=== PATIENT | male | born 1985 | race Caucasian/White ===

== ENCOUNTER 2024-05-15 03:00 | Observation (INO) ==
--- OUTSIDE RECORDS SUMMARY | 2024-05-15 03:05 | External Medical Summary ---
Author Name Unknown Address Unknown Organization K01:[facility] [place] [address] [place] [address] [place] [address] Laboratory Report Ordering Provider Test Date Status 04/17/2024 09:24:33 Final Observation Date Value Abnormality Reference (Units ) Status BUN 04/17/2024 09:24:33 13 6-20 (mg/dL) Final Creatinine 04/17/2024 09:24:33 0.9 0.6-1.2 (mg/dL) Final Glomerular filtration rate/1.73 sq M.predicted [Volume Rate/Area] in Serum, Plasma or Blood by Creatinine-based formula (CKD-EPI) 04/17/2024 09:24:33 >90 >=60 (mL/min) Final eGFR is calculated based on the CKD-EPI 2020 equation. Sodium 04/17/2024 09:24:33 138 135-146 (m mol/L) Final Potassium 04/17/2024 09:24:33 4.5 3.5-5.1 (m mol/L) Final Cl 04/17/2024 09:24:33 101 98-107 (mm ol/L) Final CO2 04/17/2024 09:24:33 24 22-32 (mmo l/L) Final Anion gap 04/17/2024 09:24:33 13 7-15 (mmol /L) Final Glucose 04/17/2024 09:24:33 99 70-120 (mg /dL) Final Albumin 04/17/2024 09:24:33 4.8 3.8-5.0 (g /dL) Final AST (Aspartate aminotransferase) 04/17/2024 09:24:33 29 10-50 (U/L) Final Alk Phos 04/17/2024 09:24:33 61 35-130 (U/ L) Final Bilirubin, Total 04/17/2024 09:24:33 0.9 <=1 .2 (mg/dL) Final Calcium 04/17/2024 09:24:33 9.6 8.4-10.2 ( mg/dL) Final Protein 04/17/2024 09:24:33 7.2 6.0-8.3 (g /dL) Final ALT (Alanine aminotransferase) 04/17/2024 09:24:33 33 10-50 (U/L) Final Performing Location [facility] [place] [facility] [address] [facility] [address]
--- OUTSIDE RECORDS SUMMARY | 2024-05-15 03:05 | External Medical Summary | Summary of Care ---
Author Name Unknown Organization [facility] Address [address] [facility] [place] [address] Phone [phone] Care Team Providers Care Preschool Assistant Teacher Name Role Phone Joyce Amezcua PA-C Primary Care Provider [phone] [phone] Reason for Visit * Reason Comments Follow Up Patient is here for his yearly check up.Patient has no concerns today. Encounter Details Date Type Department Care Team (Late st Contact Info) Description 03/23/2024 1:20 PM EST Office [facility] [address] [place] [address] August, Pietro Nation MD [address] [facility] [place], [place] [id number] Encounter for routine preventive care for patient older than 28 days*; Gouty arthropathy; Severe obesity with body mass index (BMI) of 35.0 to 39.9 with serious comorbidity (HCC); Screening for lipid disorders; Screening for diabetes mellitus; Elevated blood pressure, situational Allergies No known active allergiesdocumented as of this encounter (statuses as of 03/23/2024) Medications Ascorbic Acid (VITAMIN C ER) 1000 MG TBCR Take 1 Tab by mouth once. 30 Tab 5 7 Active Indomethacin 50 MG Oral CapsuleIndicatio ns:Gouty arthropathy TAKE ONE CAPSULE BY MOUTH THREE TIMES DAILY WITH MEALS as needed for pain and gout flares 30 Capsule 1 4 Active Allopurinol 300 MG Oral Tablet (Zyloprim)Indica tions:Gouty arthropathy,Ericka re obesity with body mass index (BMI) of 35.0 to 39.9 with serious comorbidity (HCC) TAKE 1 TABLET BY MOUTH IN THE MORNING 90 Tablet 3 4 Active FLAX OIL-FISH OIL-BORAGE OIL PO CAPS None Entered 03/23/20 24 Discontinu ed(Patient preference /discontin uation) Allopurinol 300 MG Oral Tablet (Zyloprim)Indica tions:Gouty arthropathy,Ericka re obesity with body mass index (BMI) of 35.0 to 39.9 with serious comorbidity (HCC) TAKE 1 TABLET BY MOUTH IN THE MORNING 90 Tablet 3 3 03/23/20 24 Discontinu ed(Refill) Indomethacin 50 MG Oral Capsule TAKE ONE CAPSULE BY MOUTH THREE TIMES DAILY WITH MEALS as needed for pain and gout flares 30 Capsule 1 3 03/23/20 24 Discontinu ed(Refill) Cetirizine HCl 10 MG Oral Tablet (ZyrTEC) Take 1 Tablet by mouth in the morning. 90 Tablet 3 3 03/23/20 24 Discontinu ed(Patient preference /discontin uation) documented as of this encounter (statuses as of 03/23/2024) Active Problems Problem Noted Date Diagnosed Date Allergic rhinitis 03/28/2023 Obesity, morbid (more than 1 00 lbs over ideal weight or BMI > 40) 07/12/2017 Overview (02/12/2018): ICD-10 update of inactive diagnosis Gouty arthropathy 07/11/2017 Elevated blood pressure, situational 07/11/2017 General medical exam 09/07/2014 Knee pain, right 11/23/2013 documented as of this encounter (statuses as of 03/23/2024) Resolved Problems Problem Noted Date Diagnosed Date Resolved Date Gout 07/17/2015 07/17/2015 Gout 11/23/2013 07/11/2017 documented as of this encounter (statuses as of 03/23/2024) Immunizations Name Administration Dates Next Due TDAP (age 10 and older)(Boostrix) 03/07/2023, documented as of this encounter Social History Tobacco Use Types Packs/Day Years Used Date Smoking Tobacco: Never Smokeless Tobacco: Never Alcohol Use Standard Drinks/Week Comments Yes 0 (1 standard drink = 0.6 oz pur e alcohol) rare PHQ-2 Answer Date Recorded PHQ-2 Score 0 01/14/2020 Hunger Vital Sign Answer Date Recorded Worried About Running Out of Food in the Last Ye ar Never true 03/03/2021 Ran Out of Food in the Last Year Never true 03/03/2021 Utilities Answer Date Recorded Do you have trouble paying y our heating, water, or electric bill? (Adult - for ages 18 years and over) Not on file 10/15/2023 Is your family able to pay t he heat, water, or electric bill? (Household - for ages 0-17 years) Not on file 10/15/2023 Does your family have access to good internet? (Household - for ages 0-17 years) Not on file 10/15/2023 Social Connections Answer Date Recorded How often do you feel lonely or isolated from those around you? (Adult - for ages 18 years and over) Not on file 10/15/2023 Sex and Gender Information Value Date Recorded Sex Assigned at Not on file Legal Sex Male 5:53 AM EST Gender Identity Not on file Sexual Orientation Not on file Occupation Industry Job Start Date Job End Date construction Not on file Not on file Not on file documented as of this encounter Last Filed Vital Signs Vital Sign Reading Time Taken Comments Blood Pressure 139/88 03/23/2024 1:35 PM EST Pulse 74 03/23/2024 1:35 PM EST Temperature 36.8 C (98.2 F) 03/23/2024 1:35 PM ES T Respiratory Rate 18 03/23/2024 1:35 PM EST Oxygen Saturation 97% 03/23/2024 1:35 PM EST Inhaled Oxygen Concentration - - Weight 123.1 kg (271 lb 6.4 oz) 03/23/2024 1:35 PM EST Height - - Body Mass Index 41.88 03/28/2023 5:46 PM EST documented in this encounter Progress Notes * Pietro Bui MD - 03/23/2024 1:36 PM EST Images from the original note were not included. Assessment and Plan 1. Gouty arthropathy Continue allopurinol and p.r.n. indomethacin. Uric acid with lab work. Goal 6. - Indomethacin 50 MG Oral Capsule; TAKE ONE CAPSULE BY MOUTH THREE TIMES DAILY WITH MEALS as neededfor pain and gout flares Dispense: 30 Capsule; Refill: 1 - Allopurinol 300 MG Oral Tablet (Zyloprim); TAKE 1 TABLET BY MOUTH IN THE MORNING Dispense: 90 Tablet; Refill: 3 - URIC ACID; Future 2. Severe obesity with body mass index (BMI) of 35.0 to 39.9 with serious comorbidity (HCC) Recommend 30 minutes of exercise 5 days weekly and Mediterranean/dash diet to help achieve goal weight. - Allopurinol 300 MG Oral Tablet (Zyloprim); TAKE 1 TABLET BY MOUTH IN THE MORNING Dispense: 90 Tablet; Refill: 3 3. Screening for lipid disorders - LIPID PANEL WITH DIRECT LDL IF TG IS HIGH; Future 4. Screening for diabetes mellitus - COMPREHENSIVE METABOLIC PANEL; Future 5. Encounter for routine preventive care for patient older than 28 days (Primary) Patient doing well overall. Recommend 30 minutes of exercise 5 days weekly and Mediterranean/dash diet to help achieve goal weight. Declines COVID and flu vaccines in office today. Agreeable to screening lab work as above. Recommend following with dentistry and optometry routinely. He was an appointment with Optometry today. Sunscreen when exposed. Seatbelts always. 6. Elevated blood pressure, situational Blood pressure borderline at 139/88. Recommend moderate 15-20 lb weight loss. Monitor at upcoming appointments. Wrap-Up Follow up yearly. History of Present Illness The patient is a 39-year-old male with past medical history of obesity, history of elevated blood pressure without diagnosis of hypertension, gout who presents for yearly physical. 39-year-old male presents for routine yearly physical. No significant changes to his health over the last year. He currently takes allopurinol 300 mg oral daily for history of gout. He also has indomethacin that he uses p.r.n. for any flares. No recent flares. His most recent uric acid level was 6.4 in 2021. He otherwise denies chest pain or shortness of breath. No leg swelling. No new allergies,family, social, surgical history to be updated. His blood pressure is borderline at 130 9/88. This has been borderline in the past. We did discuss potential moderate weight loss of 15-20 lb which mayreduce his risk of progressing to hypertension. He was due for basic lab work as creatinine was mildly elevated at 1.3 on last lab work in 2021. Physical Exam Vitals: 03/23/24 1335 Temp: 98.2 F (36.8 C) Pulse: 74 Resp: 18 SpO2: 97% Physical Exam Physical Exam Vitals reviewed. Constitutional: General: He is not in acute distress. Appearance: He is obese. HENT: Right Ear: Tympanic membrane normal. There is no impacted cerumen. Left Ear: Tympanic membrane normal. There is no impacted cerumen. Mouth/Throat: Mouth: Mucous membranes are moist. Pharynx: No oropharyngeal exudate or posterior oropharyngeal erythema. Cardiovascular: Rate and Rhythm: Normal rate and regular rhythm. Heart sounds: No murmur heard. Pulmonary: Effort: Pulmonary effort is normal. No respiratory distress. Breath sounds: Normal breath sounds. No wheezing. Abdominal: General: There is no distension. Palpations: Abdomen is soft. Tenderness: There is no abdominal tenderness. Musculoskeletal: Cervical back: Neck supple. Lymphadenopathy: Cervical: No cervical adenopathy. Skin: General: Skin is warm and dry. Neurological: General: No focal deficit present. Mental Status: He is alert. Psychiatric: Mood and Affect: Mood normal. Behavior: Behavior normal. This note has been completed in part utilizing [employer] Speech Voice Recognition Software. Due to technical limitations of the software, grammatical errors, random word insertions, prounoun errors, and incomplete sentences may occur. Any formal questions or concerns about the content, text, or information contained within the body of this dictation should be directly addressed to the provider for clarification. documented in this encounter Nursing Notes * Regina Almaraz LPN - 03/23/2024 1:34 PM EST The patient has been properly identified by confirmation of name and date of . Chief Complaint Patient presents with Follow Up Patient is here for his yearly check up. Patient has no concerns today. documented in this encounter Plan of Treatment Upcoming Encounters Date Type Department Care Team (Late st Contact Info) Description 03/24/2025 1:20 PM EST [facility] [address] [place] [address] August, Pietro Nation MD [address] [place] [id number] Scheduled Orders Name Type Priority Associated Diagnoses Orde r Schedule LIPID PANEL WITH DIRECT LDL IF TG IS HIGH Lab Routine Screening for lipid disorders Expected: 03/23/2024, Expires: 03/23/2025 COMPREHENSIVE METABOLIC PANEL Lab Routine Screening for diabetes mellitus Expected: 03/23/2024 (Approximate), Expires: 03/23/2025 URIC ACID Lab Routine Gouty arthropathy Expected: 03/23/2024 (Approximate), Expires: 03/23/2025 Health Maintenance Due Date Last Done Comments Hepatitis C Screening 01/19/2004 Hepatitis B Vaccine (1 of 3 - 19+ 3-dose series) 2005 GFR 03/09/2023 03/09/2022, 08/2020, 01/23/2020, Additional history exists COVID-19 Vaccine ( - season) 2023 Influenza Vaccine (FLU shot) (#1) 2023 Albumin/Creatinine Ratio 03/09/2025 03/09/2022, 12/29 Diabetes Screening 03/09/2025 03/09/2022, 1 05/03/2020, 01/23/2020, Additional history exists Depression Screening 03/23/2025 03/23/2024, 01/14/20 20 DTap/Tdap Vaccines (3 - Td or Tdap) 03/07/2033 03/07/2023, 05/24/2016 HPV (Gardasil) Vaccine Aged Out No lo nger eligible based on patient's age to complete this topic MENINGOCOCCAL (MENACTRA/MENVEO) Aged Out No longer eligible based on patient's age to complete this topic Pneumococcal Vaccine: Pediatrics (0 to 5 Years) and At-Risk Patients (6 to 64 Years) Aged Out No longer eligible based on patient's age to complete this topic documented as of this encounter Medical Devices Not on filedocumented as of this encounter Visit Diagnoses Diagnosis Encounter for routine preventive care for patient older than 28 days- Primary Gouty arthropathy Gouty arthropathy, unspecified Severe obesity with body mass index (BMI) of 35.0 to 39.9 with serious comorbidity (HCC) Screening for lipid disorders Screening for diabetes mellitus Elevated blood pressure, situational Elevated blood pressure reading without diagnosis of hypertension documented in this encounter Care Teams Preschool Assistant Teacher Relationship Specialty Start Date End Date Joyce Amezcua PA-C [address] [facility] [place] [address] PCP - General Physician Valve Tester 03/03/21 documented as of this encounter
--- OUTSIDE RECORDS SUMMARY | 2024-05-15 03:05 | External Medical Summary | Summary of Care ---
Author Name Unknown Organization [facility] Address [address] [facility] [place] [address] Phone [phone] Care Team Providers Care Stone Processing Machine Operator Name Role Phone Joyce Amezcua PA-C Primary Care Provider [phone] Encounter Details Date Type Department Care Team (Late st Contact Info) Description 04/01/2024 Orders Only PATIENT PORTAL DO NOT DELETE THIS DEPT USED BY [place] [id number] Allergies No known active allergiesdocumented as of this encounter (statuses as of 04/01/2024) Medications Ascorbic Acid (VITAMIN C ER) 1000 MG TBCR Take 1 Tab by mouth once. 30 Tab 5 05/24/2016 Active Indomethacin 50 MG Oral CapsuleIndicatio ns:Gouty arthropathy TAKE ONE CAPSULE BY MOUTH THREE TIMES DAILY WITH MEALS as needed for pain and gout flares 30 Capsule 1 03/23/2024 Active Allopurinol 300 MG Oral Tablet (Zyloprim)Indica tions:Gouty arthropathy,Ericka re obesity with body mass index (BMI) of 35.0 to 39.9 with serious comorbidity (HCC) TAKE 1 TABLET BY MOUTH IN THE MORNING 90 Tablet 3 03/23/2024 Active documented as of this encounter (statuses as of 04/01/2024) Active Problems Problem Noted Date Diagnosed Date Allergic rhinitis 03/28/2023 Obesity, morbid (more than 1 00 lbs over ideal weight or BMI > 40) 07/12/2017 Overview (02/12/2018): ICD-10 update of inactive diagnosis Gouty arthropathy 07/11/2017 Elevated blood pressure, situational 07/11/2017 General medical exam 09/07/2014 Knee pain, right 11/23/2013 documented as of this encounter (statuses as of 04/01/2024) Resolved Problems Problem Noted Date Diagnosed Date Resolved Date Gout 07/17/2015 07/17/2015 Gout 11/23/2013 07/11/2017 documented as of this encounter (statuses as of 04/01/2024) Immunizations Name Administration Dates Next Due TDAP (age 10 and older)(Boostrix) 03/07/2023, documented as of this encounter Social History Tobacco Use Types Packs/Day Years Used Date Smoking Tobacco: Never Smokeless Tobacco: Never Alcohol Use Standard Drinks/Week Comments Yes 0 (1 standard drink = 0.6 oz pur e alcohol) rare PHQ-2 Answer Date Recorded PHQ Adult Total Score 0 03/23/2024 Hunger Vital Sign Answer Date Recorded Worried About Running Out of Food in the Last Ye ar Never true 03/03/2021 Ran Out of Food in the Last Year Never true 03/03/2021 Sex and Gender Information Value Date Recorded Sex Assigned at Not on file Legal Sex Male 5:53 AM EST Gender Identity Not on file Sexual Orientation Not on file Occupation Industry Job Start Date Job End Date construction Not on file Not on file Not on file documented as of this encounter Plan of Treatment Upcoming Encounters Date Type Department Care Team (Late st Contact Info) Description 03/24/2025 1:20 PM EST [facility] [address] [place] [phone] August, Pietro Nation MD [address] [place] [address] Health Maintenance Due Date Last Done Comments Hepatitis C Screening 01/19/2004 Hepatitis B Vaccine (1 of 3 - 19+ 3-dose series) 2005 GFR 03/09/2023 03/09/2022, 11/0 08/2020, 01/23/2020, Additional history exists COVID-19 Vaccine ( - 2023- season) 2023 Influenza Vaccine (FLU shot) (#1) 2023 Albumin/Creatinine Ratio 03/09/2025 03/09/2022, 12/29 Diabetes Screening 03/09/2025 03/09/2022, 1 05/03/2020, 01/23/2020, Additional history exists Depression Screening 03/23/2025 03/23/2024 DTap/Tdap Vaccines (3 - Td or Tdap) [...] Not on filedocumented as of this encounter Care Teams Stone Processing Machine Operator Relationship Specialty Start Date End Date Joyce Amezcua PA-C [address] [facility] [place] [address] PCP - General Physician Coal Carrier 03/03/21 documented as of this encounter
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
--- OUTSIDE RECORDS SUMMARY | 2024-05-15 03:05 | External Medical Summary ---
Author Name Unknown Address Unknown Organization K01:[facility] [place] [address] [place] [address] Laboratory Report Ordering Provider Test Date Status 04/17/2024 09:24:33 Final Observation Date Value Abnormality Reference (Units ) Status Uric Acid 04/17/2024 09:24:33 7.8 Above high normal 3. 4-7.0 (mg/dL) Final Performing Location [facility] [place] - [address] [place] [address]
--- OUTSIDE RECORDS SUMMARY | 2024-05-15 03:05 | External Medical Summary | Summary of Care ---
Author Name Unknown Organization [facility] Address [address] [facility] [place] [address] Phone [phone] Care Team Providers Care Weatherization Crew Leader Name Role Phone Joyce Amezcua PA-C Primary Care Provider [phone] Reason for Visit * Reason Onset Date Comments Medication Management 04/27/2024 Encounter Details Date Type Department Care Team (Late st Contact Info) Description 04/27/2024 Telephone [facility] [address] [place] [phone] Joyce Amezcua PA-C [address] [facility] [place] [address] Medication Management Allergies No known active allergiesdocumented as of this encounter (statuses as of 04/27/2024) Medications Ascorbic Acid (VITAMIN C ER) 1000 MG TBCR Take 1 Tab by mouth once. 30 Tab 5 7 Active Indomethacin 50 MG Oral CapsuleIndicatio ns:Gouty arthropathy TAKE ONE CAPSULE BY MOUTH THREE TIMES DAILY WITH MEALS as needed for pain and gout flares 30 Capsule 1 4 Active Allopurinol 200 MG Oral TabletIndication s:Gouty arthropathy,Ericka re obesity with body mass index (BMI) of 35.0 to 39.9 with serious comorbidity (HCC) Take 200 mg by mouth in the morning and 200 mg before bedtime. 180 Tablet 3 4 Active Allopurinol 300 MG Oral Tablet (Zyloprim)Indica tions:Gouty arthropathy,Ericka re obesity with body mass index (BMI) of 35.0 to 39.9 with serious comorbidity (HCC) TAKE 1 TABLET BY MOUTH IN THE MORNING 90 Tablet 3 4 04/27/20 24 Discontinu ed(Refill) documented as of this encounter (statuses as of 04/27/2024) Active Problems Problem Noted Date Diagnosed Date Allergic rhinitis 03/28/2023 Obesity, morbid (more than 1 00 lbs over ideal weight or BMI > 40) 07/12/2017 Overview (02/12/2018): ICD-10 update of inactive diagnosis Gouty arthropathy 07/11/2017 Elevated blood pressure, situational 07/11/2017 General medical exam 09/07/2014 Knee pain, right 11/23/2013 documented as of this encounter (statuses as of 04/27/2024) Resolved Problems Problem Noted Date Diagnosed Date Resolved Date Gout 07/17/2015 07/17/2015 Gout 11/23/2013 07/11/2017 documented as of this encounter (statuses as of 04/27/2024) Immunizations Name Administration Dates Next Due TDAP [...] encounter Miscellaneous Notes * Telephone Encounter - Pietro Bui MD - 04/27/2024 5:35 PM EST New rx sent to pharmacy. Pietro Bui MD * Telephone Encounter - Yesenia Lincoln LPN - 04/27/2024 4:34 PM EST Patient's mother is aware and verbalizes understanding. She is asking if a new script for the allopurinol can be called into the [facility]. * Telephone Encounter - Mildred Lovell LPN - 04/27/2024 3:31 PM EST Left message for return call. If patient calls back please relay below message from Dr. Bui * Telephone Encounter - Mildred Lovell LPN - 04/27/2024 3:29 PM EST ----- Message from Pietro Bui MD sent at 04/26/2024 3:52 PM EST ----- Elevated uric acid at 7.8. Goal less than 6. Can increase allopurinol dosing, however, this will require twice daily dosing (200 mg BID). Continue diet and exercise to keep cholesterol under control. Pietro Bui MD documented in this encounter Plan of Treatment Upcoming Encounters Date Type Department Care Team (Late st Contact Info) Description 03/24/2025 1:20 PM EST [facility] [address] [phone] Pietro Bui MD [address] [phone] Health Maintenance Due Date Last Done Comments Hepatitis C Screening 01/19/2004 Hepatitis B Vaccine (1 of 3 - 19+ 3-dose series) 2005 COVID-19 Vaccine ( - season) 2023 Influenza [...] Diagnoses Diagnosis Gouty arthropathy Gouty arthropathy, unspecified Severe obesity with body mass index (BMI) of 35.0 to 39.9 with serious comorbidity (HCC) documented in this encounter Care Teams Weatherization Crew Leader Relationship Specialty Start Date End Date Joyce Amezcua PA-C PCP - General Physician Bag Patcher 03/03/21 documented as of this encounter
--- OUTSIDE RECORDS SUMMARY | 2024-05-15 03:05 | External Medical Summary ---
Author Name Unknown Address Unknown Organization [id number]:[facility] - [address] [place] [id number] Laboratory Report Ordering Provider Test Date Status 04/17/2024 09:24:33 Final Observation Date Value Abnormality Reference (Units ) Status Triglyceride 04/17/2024 09:24:33 333 Above high normal <=174 (mg/dL) Final Triglyceride Reference Range s (mg/dL):
<150 Acceptable
150-174 Borderline high
175-499 High
>=500 Very high Cholesterol 04/17/2024 09:24:33 193 <200 (mg /dL) Final Total Cholesterol Reference Ranges (mg/dL):
<200 Desirable
200-239 Borderline high
>=240 High HDL 04/17/2024 09:24:33 27 Below low normal >39 (mg/dL) Final HDL Cholesterol Reference Ra nges (mg/dL):
>=60 High (Desirable)
<50 Low (Undesirable) For Females
<40 Low (Undesirable) For Males NON-HDL CHOLESTEROL 04/17/2024 09:24:33 166 Above high normal <=159 (mg/dL) Final Non-HDL Cholesterol Referenc e Range (mg/dL):
<100 Target level for high risk ASCVD patient
<130 Optimal for general population
130-159 Near optimal for general population
160-189 Borderline High
190-219 High
>=220 Very High LDL, (calculated) 04/17/2024 09:24:33 99 <= 129 (mg/dL) Final LDL Cholesterol Reference Ra nges (mg/dL):
<70 Target level for high risk ASCVD patient
<100 Optimal for general population
100-129 Near optimal for general population
130-159 Borderline high
160-189 High
>=190 Very high Performing Location [facility] - [address] [facility] [address]
--- OUTSIDE RECORDS SUMMARY | 2024-05-15 03:05 | External Medical Summary | Summary of Care ---
Author Name Unknown Organization [facility] Address [address] [facility] [place] [address] Phone [phone] Care Team Providers Care Matching Machine Operator Name Role Phone Joyce Amezcua PA-C Primary Care Provider [phone] Reason for Visit * Reason Comments Outpatient Testing Encounter Details Date Type Department Care Team (Late st Contact Info) Description 04/17/2024 9:10 AM EST Laboratory Laboratory, [facility] [address] [place] [address] [facility] [address] [facility] [place] [address] Screening for lipid disorders; Screening for diabetes mellitus; Gouty arthropathy Allergies No known active allergiesdocumented as of this encounter (statuses as of 04/17/2024) Medications Ascorbic Acid (VITAMIN C ER) 1000 [...] as of this encounter (statuses as of 04/17/2024) Active Problems Problem Noted Date Diagnosed Date Allergic rhinitis 03/28/2023 Obesity, morbid (more than 1 00 lbs over ideal weight or BMI > 40) 07/12/2017 Overview (02/12/2018): ICD-10 update of inactive diagnosis Gouty arthropathy 07/11/2017 Elevated blood pressure, situational 07/11/2017 General medical exam 09/07/2014 Knee pain, right 11/23/2013 documented as of this encounter (statuses as of 04/17/2024) Resolved Problems Problem Noted Date Diagnosed Date Resolved Date Gout 07/17/2015 07/17/2015 Gout 11/23/2013 07/11/2017 documented as of this encounter (statuses as of 04/17/2024) Immunizations Name Administration Dates Next Due TDAP [...] Description 03/24/2025 1:20 PM EST Office Visit [facility] [place] [address] [phone] AugustPietro MD [address] [place] [id number] Pending Results Name Type Priority Associated Diagnoses Date /Time LIPID PANEL WITH DIRECT LDL IF TG IS HIGH Lab Routine Screening for lipid disorders 04/17/2024 9:24 AM EST COMPREHENSIVE METABOLIC PANEL Lab Routine Screening for diabetes mellitus 04/17/2024 9:24 AM EST URIC ACID Lab Routine Gouty arthropathy 04/17/2024 9:24 AM EST Health Maintenance Due Date Last Done Comments [...] as of this encounter Visit Diagnoses Diagnosis Screening for lipid disorders Screening for diabetes mellitus Gouty arthropathy Gouty arthropathy, unspecified documented in this encounter Care Teams Matching Machine Operator Relationship Specialty Start Date End Date Joyce Amezcua PA-C PCP - General Physician Fuel Cell Assembler 03/03/21 documented as of this encounter
--- NOTE | 2024-05-15 03:16 | Emergency Department Note ---
History of Present Illness General Chief complaint: Abdominal Pain Stated complaint: ABDOMINAL PAIN Time Seen by Provider: 05/15/24 03:03 History of Present Illness This 39-year-old male presents ER complaint of nausea, vomiting, diarrhea and mid abdominal pain for the past several hours. Patient denies chest pain, dyspnea, fevers, well water, recent antibiotics. His appendix has surgically been removed. Home Medications Medication Instructions Recorded Confirmed Type OMEGA-3 FATTY ACIDS (FISH OIL) 2 capsules PO DAILY ##0 08/01/12 History ALLOPURINOL (ZYLOPRIM) 200 mg PO QD #0 tabs 10/29/17 History Ascorbic Acid (Vitamin C) 500 mg PO QD ##0 10/29/17 History Allergies Allergy/AdvReac Type Severity Reaction Status Date / Time No Known Allergies Allergy Unverified 10/29/17 11:12 Past Med/Surg History Problem List (Updated 05/15/24 @ 04:43 by Debbie Leblanc PA-C) Acute pancreatitis (Acute) Nausea, vomiting, and diarrhea (Acute) Social History Smoking Status: Never smoker Preferred Language: Wolof Feels Safe at Home: Yes Review of Systems A total of 10 systems reviewed and were otherwise negative Physical Exam Vital Signs Vital Signs - 24 hr 05/15/24 03:02 05/15/24 03:50 05/15/24 03:50 Pulse Rate 69 84 Pulse Rate [Apical] 85 Pulse Rhythm Regular Pulse Rhythm [Apical] Regular Pulse Strength [Apical] Normal Respiratory Rate 18 20 20 Respiratory Effort / Characteristics Non-Labored Spontaneous Respiratory Depth Normal Respiratory Pattern Regular Blood Pressure 94/62 L Blood Pressure [Left Arm] 105/76 Blood Pressure Mean 72 Blood Pressure Mean [Left Arm] 85 Blood Pressure Position [Left Arm] Lying Pulse Oximetry 97 97 98 Oxygen Delivery Method Room Air Room Air Room Air Sepsis Recent Fever Within 48 Hours No Sepsis New/Unexplained Change in Mental Status No Sepsis Action Taken by Nursing No Action Required 05/15/24 03:58 05/15/24 04:00 Pulse Rate 85 Pulse Rate [Apical] 100 H Pulse Rhythm Pulse Rhythm [Apical] Regular Pulse Strength [Apical] Normal Respiratory Rate 20 Respiratory Effort / Characteristics Non-Labored Spontaneous Respiratory Depth Normal Respiratory Pattern Regular Blood Pressure Blood Pressure [Left Arm] 106/62 Blood Pressure Mean Blood Pressure Mean [Left Arm] 76 Blood Pressure Position [Left Arm] Lying Pulse Oximetry 99 Oxygen Delivery Method Room Air Sepsis Recent Fever Within 48 Hours Sepsis New/Unexplained Change in Mental Status Sepsis Action Taken by Nursing VITALS: Vitals are noted on the nurse's note and reviewed by myself. Vital signs stable. GENERAL: White male ambulating with mother present, in no acute distress, nondiaphoretic, well-developed well-nourished. SKIN: Capillary reflex less than 2 seconds. HEENT: Normocephalic. PERRLA. EOMI. Nares patent. Mucous membranes moist. Neck is supple without nuchal rigidity. HEART: Regular rate and rhythm LUNGS: Clear to auscultation bilaterally without wheezes, rales or rhonchi. No retractions or accessory muscle use. ABDOMEN: Positive bowel sounds x 4. Normal tympanic percussion. Soft, tender mid abdomen, without masses or organomegaly. Preston sign negative. No guarding or rebound tenderness. no CVA tenderness MUSCULOSKELETAL: No gross musculoskeletal defects. NEURO: Patient was alert and oriented to person place and time. No focal neurological deficits. Course Administered Medications Discontinued Medications Dicyclomine HCl (Dicyclomine Hcl 10 Mg/Ml 2 Ml Amp/Vial) 20 mg IM NOW ONE Stop: 05/15/24 03:15 Last Admin: 05/15/24 03:26 Dose: 20 mg Documented By: LETTY Sodium Chloride (Nss) 1,000 mls @ 999 mls/hr IV .Q1H1M ONE Stop: 05/15/24 04:14 Last Infusion: 05/15/24 04:29 Dose: Infused Documented By: Admin: 05/15/24 03:28 Dose: 999 mls/hr Documented By: LETTY Famotidine (Pepcid 20mg Iv Push) 20 mg in 5 mls @ 2.5 mls/min IV NOW STA Stop: 05/15/24 03:15 Last Admin: 05/15/24 03:26 Dose: 2.5 mls/min Documented By: LETTY Sodium Chloride (Nss) 1,000 mls @ 999 mls/hr IV .Q1H1M ONE Stop: 05/15/24 04:43 Last Admin: 05/15/24 04:31 Dose: 999 mls/hr Documented By: LETTY Ioversol (Optiray 320 100ml) 100 ml IV ONCE ONE Stop: 05/15/24 03:46 Last Admin: 05/15/24 03:46 Dose: 93 ml Documented By: TANK Ondansetron HCl (Ondansetron Inj 2 Mg/Ml 2 Ml Vial) 4 mg IV NOW STA Stop: 05/15/24 03:15 Last Admin: 05/15/24 03:26 Dose: 4 mg Documented By: LETTY Medical Decision Making Medical Records Attestation: I reviewed the patient's medical records. Home Medications Current Medication List: was personally reviewed by me Laboratory Data Attestation: I reviewed the patient's lab results. 05/15/24 03:09 05/15/24 03:09 Lab Results 05/15/24 05/15/24 05/15/24 Range/Units 03:09 03:25 03:50 WBC 11.87 H (4.8-10.8) K/ul RBC 6.10 (4.70-6.10) M/uL Hgb 18.7 H (14.0-18.0) g/dl POC Hgb 18.7 H (14.0-18.0) g/dl Hct 54.9 H (42.0-52.0) % POC Hct 55 H (42-52) % MCV 90.0 (80.0-100.0) fL MCH 30.7 (25.0-34.0) pg MCHC 34.1 (32.0-36.0) g/dL RDW Std Deviation 38.8 (36.4-46.3) fL RDW Coeff of Dyana 11.9 (11.5-14.5) % Plt Count 308 (130-400) K/uL MPV 9.8 (9.4-12.4) fL Immature Gran % (Auto) 0.6 % Neut % (Auto) 62.4 % Lymph % (Auto) 29.0 % Cataño % (Auto) 4.4 % Eos % (Auto) 2.9 % Baso % (Auto) 0.7 % Neut # (Auto) 7.42 H (1.40-6.50) K/uL Lymph # (Auto) 3.44 H (1.20-3.40) K/uL Cataño # (Auto) 0.52 (0.11-0.59) K/uL Eos # (Auto) 0.34 (0.00-0.50) K/uL Baso # (Auto) 0.08 (0.00-0.20) K/uL Immature Gran # (Auto) 0.07 (0.01-0.20) K/uL POC Sodium 140 (135-144) mmol/L Sodium 138 (136-145) mmol/L POC Potassium 3.7 (3.3-5.0) mmol/L Potassium 3.8 (3.5-5.1) mmol/L POC Chloride 100 L (101-112) mmol/L Chloride 100 (98-107) mmol/L Carbon Dioxide 30 (21-32) mmol/L POC Total CO2 27 (24-31) mmol/L Anion Gap 8 (3-11) POC Anion Gap 17.0 (16-25) mmol/L POC BUN 21 H (7-18) mg/dl BUN 20 (6-23) mg/dl Creatinine 1.50 H (0.6-1.4) mg/dl POC Creatinine 1.6 H (0.6-1.3) mg/dl Est Cr Clr Drug Dosing 83.7 ml/min eGFR 60.73 BUN/Creatinine Ratio 13.3 (10-20) Glucose 137 H (70-99(Fasting)) mg/dl POC Glucose (other) 133 H (70-99) mg/dl Calcium 10.0 (8.6-10.3) mg/dl POC Ioniz Calcium Renae 1.21 (1.12-1.32) mmol/l Magnesium 2.3 (1.7-2.4) mg/dl Total Bilirubin 0.7 (0.2-1.0) mg/dl AST 21 (13-39) U/L ALT 24 (7-52) U/L Alkaline Phosphatase 65 (34-104) U/L Total Protein 7.9 (6.0-8.3) gm/dl Albumin 5.0 (3.4-5.0) gm/dl Globulin 2.9 (2.5-4.0) gm/dl Albumin/Globulin Ratio 1.7 (0.9-2) Lipase 6631 H (11-82) U/L Urine Color Yellow Urine Appearance Cloudy A (Clear) Urine pH 5.0 (4.5-7.5) Ur Specific Hulen 1.023 (1.000-1.030) Urine Protein 2+ H (Negative) Urine Glucose (UA) Negative (Negative) Urine Ketones Trace H (Negative) Urine Blood Negative (Negative) Urine Nitrite Negative (Negative) Urine Bilirubin Negative (Negative) Urine Urobilinogen Negative (Negative) Ur Leukocyte Esterase Trace H (Negative) Urine WBC (Auto) 0-5 (0-5) /hpf Urine RBC (Auto) 3-5 H (0-2) /hpf U Hyaline Cast (Auto) 6-10 H (0-2) /lpf U Epithel Cells (Auto) 0-2 (0-2) /hpf Urine Bacteria (Auto) None Seen (None Seen) Imaging Data Attestation: I personally reviewed and interpreted this imaging study as follows: Radiologist's Impression: Abdomen/Pelvis CT 05/15/24 03:09 EXAM: CT abd pelvis IV con only CLINICAL HISTORY: mid abd pain v/d, 93 ML OPTIRAY 320 TECHNIQUE: Multiple contiguous axial images were obtained from the level of diaphragm to the pubis symphysis. This study was acquired after the IV administration of iodinated contrast material, given the patient's indications for the examination. If IV contrast material had not been administered, the likelihood of detecting abnormalities relevant to the patient's condition would have been substantially decreased. Coronal and sagittal reformatted images were generated and reviewed to improve anatomic localization and optimize lesion detection. CT scan was performed according to ALARA (as low as reasonably achievable). COMPARISON: None. FINDINGS: Minimal pericardial effusion is detected. ABDOMEN/PELVIS: Circumferential wall thickening is noted involving entire jejunum. Proximal jejunum appears dilated measuring 3.7 cm in diameter. Similar patchy wall thickening is also noted involving the ileum. However, ileal loops appear normal in caliber. Mild fat stranding and congestion is noted around is edematous small bowel loops. No signs of bowel perforation /pneumoperitoneum. Large bowel is normal in caliber. Mild free fluid is noted in the pelvis. Small fat containing bilateral inguinal hernias are noted, larger on left side. Small omental fat containing umbilical hernia is also seen. The liver is normal in size and attenuation. No focal liver lesions are seen. There is no intra or extrahepatic biliary ductal dilatation. Hepatic vasculature is patent. The gallbladder is unremarkable. The spleen is unremarkable. The pancreas is unremarkable. Both adrenal glands are unremarkable. The kidneys are normal in size and attenuation. There is no hydronephrosis. No perinephric fat stranding is seen. No renal calculi or renal masses are identified. The ureters are normal in caliber and no ureteral calculi are seen. The bladder is normal in contour. The aorta is normal in caliber. No aggressive appearing osseous lesions are identified. IMPRESSION: 1. Minimal pericardial effusion is detected. 2. Circumferential wall thickening is noted involving entire jejunum. Proximal jejunum appears dilated measuring 3.7 cm in diameter. Similar patchy wall thickening is also noted involving the ileum. However, ileal loops appear normal in caliber. Mild fat stranding and congestion is noted around is edematous small bowel loops. No signs of bowel perforation /pneumoperitoneum. Possibility of enteritis, likely infective with low grade small bowel obstruction needs consideration. Follow up is suggested. 3. Large bowel is normal in caliber. 4. Mild free fluid is noted in the pelvis. 5. Small fat containing bilateral inguinal hernias are noted, larger on left side. 6. Small omental fat containing umbilical hernia is also seen. Electronically signed by Roman Mcwilliams 05-15-2024 04:39 AM MDM Narrative Prior records/ancillary studies reviewed. Triage Nursing notes reviewed. Additional history obtained from the family. The patient's history was concerning for nausea, vomiting, diarrhea, and abdominal pain. Differential diagnosis: Etiologies such as gastroenteritis, food borne illness, infections, appendicitis, diverticulitis, inflammatory bowel disease, obstruction, GI bleed, biliary pathology, as well as others were entertained. Physical examination findings: As above. Abdominal examination revealed mid abdominal tenderness. Vital signs reviewed and revealed minimally hypotensive. ER treatment provided: IV hydration 1 L NSS. Zofran Pepcid and Bentyl were ordered On reassessment the patient felt better. Patient was tolerating p.o. intake. Diagnostics interpretation by me: The labs Independently Interpreted by myself revealed elevated lipase Mild leukocytosis Negative urine Imaging studies: CT was reviewed and read by radiology Consultation: A consultation was placed with the hospitalist. The case was discussed and diagnostics were reviewed. The patient was evaluated in the ER for further treatment. This appears to be consistent with nausea vomiting diarrhea and early pancreatitis. Lipase is quite high. CT did not show any signs of pancreatitis but patient's only had symptoms tonight and could be early. Patient was tender over the epigastric upper abdominal area and symptoms discharged tonight. She was hydrated as above. Medicine was consulted case is discussed. He will be evaluated for possible admission. By the evaluation outlined above emergent etiologies such as appendicitis, diverticulitis, obstruction, cardiac sources, mesenteric ischemia, aortic pathology, inflammatory bowel disease, renal colic, PUD, biliary pathology, UTI, as well as others were deemed relatively unlikely. The pt informed about the findings as listed above. All questions were answered and pleased with the treatment. The chart was completed utilizing [employer] Speech voice recognition software. Grammatical errors, random word insertions, pronoun errors, and incomplete sentences are an occassional consequence of this system due to software limitations, ambient noise, and hardware issues. Any formal questions or concerns about the content, text, or information contained within the body of this dictation should be directly addressed to the physician operations administrative assistant for clarification. Impression & Plan Nausea, vomiting, and diarrhea, Acute pancreatitis Discharge Plan Visit Data Chief Complaint: Abdominal Pain Stated Complaint: ABDOMINAL PAIN ED Provider: Pietro Arevalo ED Midlevel Provider: Debbie Leblanc Discharge Problem: Nausea, vomiting, and diarrhea, Acute pancreatitis Patient Disposition: Admitted As Inpatient Condition: Good Forms Stand Alone Forms: [facility] [employer] Prescriptions Prescriptions: No Action OMEGA-3 FATTY ACIDS (FISH OIL) 1 CAP capsule 2 capsules PO DAILY Qty: 0 ALLOPURINOL (ZYLOPRIM) 100 MG tablet 200 mg PO QD Qty: 0 Ascorbic Acid (Vitamin C) 500 MG tablet 500 mg PO QD Qty: 0 Referrals Referrals: PCP,NO [Physician] -
[2024-05-15] MEDS: FAMOTIDINE 20MG IV PUSH 20 MG/5 ML SYR IV STA (03:26)
[2024-05-15] MEDS: DICYCLOMINE HCL 10 MG/ML 2 ML AMP/VIAL IM ONE (03:26)
[2024-05-15] MEDS: ONDANSETRON INJ 2 MG/ML 2 ML VIAL IV STA (03:26)
[2024-05-15] MEDS: SODIUM CHLORIDE 0.9% 1,000 ML IV ONE ×2 (03:28→04:31)
[2024-05-15 03:37] LABS: iSTAT Creatinine 1.6 mg/dl (0.6-1.3); iSTAT Hemoglobin 18.7 g/dl (14.0-18.0); iSTAT Ionized Calcium 1.21 mmol/l (1.12-1.32); iSTAT Potassium 3.7 mmol/L (3.3-5.0)
[2024-05-15] MEDS: OPTIRAY 320 100ml IV ONE (03:46)
[2024-05-15 03:53] LABS: BUN Creatinine Ratio 13.3 (10-20); Creatinine Clr Calc Pharmacy 83.7 ml/min; Potassium 3.8 mmol/L (3.5-5.1)
[2024-05-15 04:17] LABS: Albumin Globulin Ratio 1.7 (0.9-2); Bilirubin,Total 0.7 mg/dl (0.2-1.0); Globulin 2.9 gm/dl (2.5-4.0); Magnesium 2.3 mg/dl (1.7-2.4); Total Protein 7.9 gm/dl (6.0-8.3)
[2024-05-15 04:18] LABS: Appearance Urine Cloudy (Clear); Bacteria Urine Automated None Seen (None Seen); Bilirubin Urine Negative (Negative); Blood Urine Negative (Negative); Color Urine Yellow; Epithelial Cell Urine Auto 0-2 /hpf (0-2); Glucose Urine UA Negative (Negative); Ketones Urine Trace (Negative); Leukocyte Esterase Urine Trace (Negative); Nitrite Urine Negative (Negative); Protein Urine 2+ (Negative); Specific Gravity Urine 1.023 (1.000-1.030); Urobilinogen Urine Negative (Negative); WBC Urine Automated 0-5 /hpf (0-5)
[2024-05-15 04:34] LABS: Basophils # (auto) 0.08 K/uL (0.00-0.20); Basophils % (auto) 0.7 %; Eosinophils # (auto) 0.34 K/uL (0.00-0.50); Eosinophils % (auto) 2.9 %; Hematocrit (blood only) 54.9 % (42.0-52.0); Hemoglobin 18.7 g/dl (14.0-18.0); Immature Granulocytes # (auto) 0.07 K/uL (0.01-0.20); Immature Granulocytes % (auto) 0.6 %; Lymphocytes # (auto) 3.44 K/uL (1.20-3.40); Mean Corpuscular Hemoglobin 30.7 pg (25.0-34.0); Mean Corpuscular Hgb Conc 34.1 g/dL (32.0-36.0); Mean Platelet Volume 9.8 fL (9.4-12.4); Monocytes # (auto) 0.52 K/uL (0.11-0.59); Monocytes % (auto) 4.4 %; Neutrophils # (auto) 7.42 K/uL (1.40-6.50); Neutrophils % (auto) 62.4 %; Platelet Count 308 K/uL (130-400); RDW Coefficient of Variation 11.9 % (11.5-14.5); RDW Standard Deviation 38.8 fL (36.4-46.3); White Blood Count 11.87 K/ul (4.8-10.8)
--- NOTE | 2024-05-15 04:39 | CT Scan Report ---
EXAM: CT abd pelvis IV con only CLINICAL HISTORY: mid abd pain v/d, 93 ML OPTIRAY 320 TECHNIQUE: Multiple contiguous axial images were obtained from the level of diaphragm to the pubis symphysis. This study was acquired after the IV administration of iodinated contrast material, given the patient's indications for the examination. If IV contrast material had not been administered, the likelihood of detecting abnormalities relevant to the patient's condition would have been substantially decreased. Coronal and sagittal reformatted images were generated and reviewed to improve anatomic localization and optimize lesion detection. CT scan was performed according to ALARA (as low as reasonably achievable). COMPARISON: None. FINDINGS: Minimal pericardial effusion is detected. ABDOMEN/PELVIS: Circumferential wall thickening is noted involving entire jejunum. Proximal jejunum appears dilated measuring 3.7 cm in diameter. Similar patchy wall thickening is also noted involving the ileum. However, ileal loops appear normal in caliber. Mild fat stranding and congestion is noted around is edematous small bowel loops. No signs of bowel perforation /pneumoperitoneum. Large bowel is normal in caliber. Mild free fluid is noted in the pelvis. Small fat containing bilateral inguinal hernias are noted, larger on left side. Small omental fat containing umbilical hernia is also seen. The liver is normal in size and attenuation. No focal liver lesions are seen. There is no intra or extrahepatic biliary ductal dilatation. Hepatic vasculature is patent. The gallbladder is unremarkable. The spleen is unremarkable. The pancreas is unremarkable. Both adrenal glands are unremarkable. The kidneys are normal in size and attenuation. There is no hydronephrosis. No perinephric fat stranding is seen. No renal calculi or renal masses are identified. The ureters are normal in caliber and no ureteral calculi are seen. The bladder is normal in contour. The aorta is normal in caliber. No aggressive appearing osseous lesions are identified. IMPRESSION: 1. Minimal pericardial effusion is detected. 2. Circumferential wall thickening is noted involving entire jejunum. Proximal jejunum appears dilated measuring 3.7 cm in diameter. Similar patchy wall thickening is also noted involving the ileum. However, ileal loops appear normal in caliber. Mild fat stranding and congestion is noted around is edematous small bowel loops. No signs of bowel perforation /pneumoperitoneum. Possibility of enteritis, likely infective with low grade small bowel obstruction needs consideration. Follow up is suggested. 3. Large bowel is normal in caliber. 4. Mild free fluid is noted in the pelvis. 5. Small fat containing bilateral inguinal hernias are noted, larger on left side. 6. Small omental fat containing umbilical hernia is also seen. Electronically signed by Roman Mcwilliams 05-15-2024 04:39 AM
[2024-05-15 04:50] LABS: Adenovirus PCR Not Detected (NotDetected); Bordetella parapertussis PCR Not Detected (NotDetected); Bordetella pertussis PCR Not Detected (NotDetected); Chlamydia pneumoniae PCR Not Detected (NotDetected); Coronavirus 229E PCR Not Detected (NotDetected); Coronavirus CoV-2 (COVID19)PCR Not Detected (NotDetected); Coronavirus HKU1 PCR Not Detected (NotDetected); Coronavirus NL63 PCR Not Detected (NotDetected); Coronavirus OC43PCR DETECTED (NotDetected); Human Metapneumovirus PCR Not Detected (NotDetected); Influenza A PCR Not Detected (NotDetected); Influenza B PCR Not Detected (NotDetected); Mycoplasma pneumoniae PCR Not Detected (NotDetected); Parainfluenza Virus 1 PCR Not Detected (NotDetected); Parainfluenza Virus 2 PCR Not Detected (NotDetected); Parainfluenza Virus 3 PCR Not Detected (NotDetected); Parainfluenza Virus 4 PCR Not Detected (NotDetected); Respiratory Syncytial VirusPCR Not Detected (NotDetected); Rhinovirus/Enterovirus PCR Not Detected (NotDetected)
[2024-05-15 06:36] LABS: Adenovirus F 40/41 PCR Not Detected (NotDetected); Astrovirus PCR Not Detected (NotDetected); Campylobacter PCR Not Detected (NotDetected); Cryptosporidium PCR Not Detected (NotDetected); Cyclospora cayetanensis PCR Not Detected (NotDetected); Entamoeba histolytica PCR Not Detected (NotDetected); Enteroaggregative E.coli(EAEC) Not Detected (NotDetected); Enteropathogenic E.coli (EPEC) Not Detected (NotDetected); Enterotoxigenic E.coli (ETEC) Not Detected (NotDetected); Giardia lamblia PCR Not Detected (NotDetected); Norovirus GI/GII PCR Not Detected (NotDetected); Plesiomonas shigelloides PCR Not Detected (NotDetected); Rotavirus A PCR Not Detected (NotDetected); Salmonella PCR Not Detected (NotDetected); Sapovirus PCR Not Detected (NotDetected); Shiga-like Toxin E.coli (STEC) Not Detected (NotDetected); Shigella/Enteroinvasive E.coli Not Detected (NotDetected); Vibrio cholerae PCR Not Detected (NotDetected); Vibrio species PCR Not Detected (NotDetected); Yersinia enterocolitica PCR Not Detected (NotDetected)
[2024-05-15] MEDS ORDERED: ONDANSETRON INJ 2 MG/ML 2 ML VIAL IV PRN (08:32)
--- NOTE | 2024-05-15 08:41 | Surgery Consultation ---
Date of Consultation May 15, 2024 Assessment & Plan (1) Acute pancreatitis: His CT images and results were personally viewed and interpreted by myself There is no dustin signs of obstruction on CT scan, only thickening of his jejunum and clinical picture fits more of an enteritis His lipase is elevated and pain is typical of pancreatitis Will order ultrasound to rule out gallstones as a cause Would consult GI to follow along in case ERCP is required N.p.o. for today give IV fluids, no need for antibiotics from a surgical standpoint Follow up US results, no plan for any surgical intervention at this time (2) Nausea, vomiting, and diarrhea: (3) Coronavirus infection: History of Present Illness Reason for Consultation: Pancreatitis, small bowel obstruction History of Present Illness This is a 39-year-old male who presents to the ER today with epigastric abdominal pain since this morning. States it is sharp and non-radiating. No aggravating or relieving factors. He had some associated nausea and vomiting. Denies any fevers or chills. NO jaundice, scleral icterus. Previous abdominal surgeries include appendectomy. He has also had diarrhea with this. States he has not had a drink of ETOH for about 3 months. Allergies Allergy/AdvReac Type Severity Reaction Status Date / Time No Known Allergies Allergy Unverified 10/29/17 11:12 Home Medications Medication Instructions Recorded Confirmed Type [place] 3 2 capsules PO UD ##0 08/01/12 05/15/24 History allopurinol 300 mg tablet 300 mg PO DAILY #0 tabs 10/29/17 05/15/24 History ascorbic acid (vitamin C) 500 mg PO UD ##0 10/29/17 05/15/24 History Sudafed 1 tab PO DIRECTED PRN Cold 05/15/24 05/15/24 History Symptoms indomethacin 50 mg capsule 50 mg PO TID PRN pain/gout flare 05/15/24 05/15/24 History Patient History Social History Smoking Status: Never smoker Preferred Language: Korean Feels Safe at Home: Yes Review of Systems Constitutional: no fever and no chills Eyes: no blind spots and no worsening vision Ear, Nose, Mouth, Throat: no ear pain and no hearing loss Respiratory: no cough and no dyspnea Cardiovascular: no chest pain and no dyspnea on exertion Gastrointestinal: + abdominal pain, + nausea, + vomiting a nd + diarrhea/loose stools; no constipation, no blood in stools and no melena Genitourinary: no dysuria or no urinary incontinence Musculoskeletal: no back pain and no neck pain Integumentary: no acne and no changing lesions Neurologic: no gait abnormality and no headache(s) Psychiatric: no behavioral changes and no depression Hematologic / Lymphatic: no easy bleeding and no easy bruising Physical Exam Constitutional: WD/WN, vitals as above Eyes: PERRL, conjunctivae normal, anicteric sclerae ENMT: external ear and nose normal, oropharynx normal Neck: trachea midline, no thyromegaly Respiratory: normal respiratory effort, lungs clear to auscultation Cardiovascular: RRR, no murmur, no edema Gastrointestinal (Abdomen): Inspection/Auscultation: abdomen normal to inspection; abdomen not distended Percussion/Palpation: + abdomen tender (Epigastrium) and abdomen soft; no guarding and no hernia Musculoskeletal: no cyanosis or clubbing, extremities motor strength 5/5 Skin: no rashes, warm and dry Neurologic: PERRL, EOMI, accommodation nl, no face palsy, no dysarthria Psychiatric: A+Ox3, euthymic affect Results & Data Vital Signs (Past 12 Hours) Vital Signs Pulse Pulse Resp BP BP Pulse Ox O2 Del Method 05/15/24 08:10 86 05/15/24 08:00 87 20 107/71 97 Room Air 05/15/24 06:56 86 18 103/71 96 Room Air 05/15/24 06:00 93 H 20 114/71 98 Room Air 05/15/24 04:00 100 H 20 106/62 99 Room Air 05/15/24 03:58 85 05/15/24 03:50 85 20 105/76 98 Room Air 05/15/24 03:50 84 20 97 Room Air 05/15/24 03:02 69 18 94/62 L 97 Room Air PG Care Time/CCT Total # of Minutes Spent Total Time Spent with Patient: Total time spent is greater than 50% in coordination of care (as documented) at patient's floor/unit and/or counseling patient: Coding Level of Care Code 03393 OFFICE CONSULT LVL 55M Diagnoses Acute pancreatitis K85.90 Nausea, vomiting, and diarrhea R11.2; R19.7 Coronavirus infection B34.2
--- NOTE | 2024-05-15 08:59 | History & Physical Report ---
Date of Service May 15, 2024 Assessment & Plan (1) Acute pancreatitis: Plan: 39-year-old male with past medical history significant for elevated blood pressure situational, allergic rhinitis, morbid obesity, gout comes because of nausea vomiting diarrhea and abdominal pain. Still having diarrhea moved bowels in the ER. Abdominal pain is better. Several episodes of nausea vomiting as per patient. Patient lives with his parents. As per mother since Jennifer patient is having cold symptoms. Having lot of cough. He is taking gwqi-lsf-bzkdzdx cold medications, Sudafed. He also has gout. He takes allopurinol. He also takes indomethacin as needed and for last 1 week he was taking the indomethacin because of gout attack in his right wrist. Currently right wrist pain is resolved. Denies any fevers. No headache. Some runny nose. Vision is okay. No earaches. Ambulating okay. Micturating okay. Hemodynamics are okay. Pancreatitis Abdominal pain Lipase 6600 CT scan okay N.p.o. IV normal saline 200 mL/h Pain control GI consult Nausea vomiting Diarrhea Possible gastroenteritis IV fluids Follow stool studies GI consult Possible small bowel obstruction Patient moving bowels Will monitor YAN Creatinine 1.5 Baseline creatinine 0.9 Avoid nephrotoxic agents IV fluids Will follow repeat labs Morbid obesity Needs counseling Gout on allopurinol DVT prophylaxis Heparin subcu Disposition Medical floor Full code History of Present Illness Chief Complaint: Nausea, vomiting and abdominal pain and diarrhea Primary Care Provider: Pietro Bui MD 39-year-old male with past medical history significant for elevated blood pressure situational, allergic rhinitis, morbid obesity, gout comes because of nausea vomiting diarrhea and abdominal pain. Still having diarrhea moved bowels in the ER. Abdominal pain is better. Several episodes of nausea vomiting as per patient. Patient lives with his parents. As per mother since Jennifer patient is having cold symptoms. Having lot of cough. He is taking cvik-irl-ijppfko cold medications, Sudafed. He also has gout. He takes allopurinol. He also takes indomethacin as needed and for last 1 week he was taking the indomethacin because of gout attack in his right wrist. Currently right wrist pain is resolved. Denies any fevers. No headache. Some runny nose. Vision is okay. No earaches. Ambulating okay. Micturating okay. Hemodynamics are okay. Past medical history. As mentioned above Past surgical history. Laparoscopic appendectomy. Social history. No smoking. Alcohol rarely. No drug use. Family history. Father has gout, hypertension. Allergies Allergy/AdvReac Type Severity Reaction Status Date / Time No Known Allergies Allergy Unverified 10/29/17 11:12 Home Medications Medication Instructions Recorded Confirmed Type OMEGA-3 FATTY ACIDS (FISH OIL) 2 capsules PO DAILY ##0 08/01/12 History ALLOPURINOL (ZYLOPRIM) 200 mg PO QD #0 tabs 10/29/17 History Ascorbic Acid (Vitamin C) 500 mg PO QD ##0 10/29/17 History Past Med/Surg History Problem List Coronavirus infection (Acute) Acute pancreatitis (Acute) Nausea, vomiting, and diarrhea (Acute) Social History Smoking Status: Never smoker Preferred Language: Upper Sorbian Feels Safe at Home: Yes Review of Systems Review of Systems: All systems reviewed & are unremarkable except as noted in HPI & below Physical Exam Physical Exam: General- Not in distress Head- atraumatic Eyes- PERRL. ENT- oropharynx clear Neck- supple, no JVD. Lungs- clear to auscultation no wheezing or crackles Heart- regular rate and rhythm; no murmur, no gallop. Abdomen- normal bowel sounds, soft, nontender, no distension. Extremities- no pretibial edema, no erythema seen Neuro- alert, oriented PERRL, no facial palsy; no dysarthria; moves extremities Results & Data Results & Data Vital Signs (Past 12 Hours) Vital Signs Pulse Pulse Resp BP BP Pulse Ox O2 Del Method 05/15/24 06:56 86 18 103/71 96 Room Air 05/15/24 06:00 93 H 20 114/71 98 Room Air 05/15/24 04:00 100 H 20 106/62 99 Room Air 05/15/24 03:58 85 05/15/24 03:50 85 20 105/76 98 Room Air 05/15/24 03:50 84 20 97 Room Air 05/15/24 03:02 69 18 94/62 L 97 Room Air Diagnostic Findings Laboratory Results WBC 11.87 K/ul (4.8-10.8) H 05/15/24 03:09 RBC 6.10 M/uL (4.70-6.10) 05/15/24 03:09 Hgb 18.7 g/dl (14.0-18.0) H 05/15/24 03:09 POC Hgb 18.7 g/dl (14.0-18.0) H 05/15/24 03:25 Hct 54.9 % (42.0-52.0) H 05/15/24 03:09 POC Hct 55 % (42-52) H 05/15/24 03:25 MCV 90.0 fL (80.0-100.0) 05/15/24 03:09 MCH 30.7 pg (25.0-34.0) 05/15/24 03:09 MCHC 34.1 g/dL (32.0-36.0) 05/15/24 03:09 RDW Std Deviation 38.8 fL (36.4-46.3) 05/15/24 03:09 RDW Coeff of Dyana 11.9 % (11.5-14.5) 05/15/24 03:09 Plt Count 308 K/uL (130-400) 05/15/24 03:09 MPV 9.8 fL (9.4-12.4) 05/15/24 03:09 Immature Gran % (Auto) 0.6 % 05/15/24 03:09 Neut % (Auto) 62.4 % 05/15/24 03:09 Lymph % (Auto) 29.0 % 05/15/24 03:09 Wright % (Auto) 4.4 % 05/15/24 03:09 Eos % (Auto) 2.9 % 05/15/24 03:09 Baso % (Auto) 0.7 % 05/15/24 03:09 Neut # (Auto) 7.42 K/uL (1.40-6.50) H 05/15/24 03:09 Lymph # (Auto) 3.44 K/uL (1.20-3.40) H 05/15/24 03:09 Wright # (Auto) 0.52 K/uL (0.11-0.59) 05/15/24 03:09 Eos # (Auto) 0.34 K/uL (0.00-0.50) 05/15/24 03:09 Baso # (Auto) 0.08 K/uL (0.00-0.20) 05/15/24 03:09 Immature Gran # (Auto) 0.07 K/uL (0.01-0.20) 05/15/24 03:09 POC Sodium 140 mmol/L (135-144) 05/15/24 03:25 Sodium 138 mmol/L (136-145) 05/15/24 03:09 POC Potassium 3.7 mmol/L (3.3-5.0) 05/15/24 03:25 Potassium 3.8 mmol/L (3.5-5.1) 05/15/24 03:09 POC Chloride 100 mmol/L (101-112) L 05/15/24 03:25 Chloride 100 mmol/L (98-107) 05/15/24 03:09 Carbon Dioxide 30 mmol/L (21-32) 05/15/24 03:09 POC Total CO2 27 mmol/L (24-31) 05/15/24 03:25 Anion Gap 8 (3-11) 05/15/24 03:09 POC Anion Gap 17.0 mmol/L (16-25) 05/15/24 03:25 POC BUN 21 mg/dl (7-18) H 05/15/24 03:25 BUN 20 mg/dl (6-23) 05/15/24 03:09 Creatinine 1.50 mg/dl (0.6-1.4) H 05/15/24 03:09 POC Creatinine 1.6 mg/dl (0.6-1.3) H 05/15/24 03:25 Est Cr Clr Drug Dosing 83.7 ml/min 05/15/24 03:09 eGFR 60.73 05/15/24 03:09 BUN/Creatinine Ratio 13.3 (10-20) 05/15/24 03:09 Glucose 137 mg/dl (70-99(Fasting)) H 05/15/24 03:09 POC Glucose (other) 133 mg/dl (70-99) H 05/15/24 03:25 Calcium 10.0 mg/dl (8.6-10.3) 05/15/24 03:09 POC Ioniz Calcium Renae 1.21 mmol/l (1.12-1.32) 05/15/24 03:25 Magnesium 2.3 mg/dl (1.7-2.4) 05/15/24 03:09 Total Bilirubin 0.7 mg/dl (0.2-1.0) 05/15/24 03:09 AST 21 U/L (13-39) 05/15/24 03:09 ALT 24 U/L (7-52) 05/15/24 03:09 Alkaline Phosphatase 65 U/L (34-104) 05/15/24 03:09 Total Protein 7.9 gm/dl (6.0-8.3) 05/15/24 03:09 Albumin 5.0 gm/dl (3.4-5.0) 05/15/24 03:09 Globulin 2.9 gm/dl (2.5-4.0) 05/15/24 03:09 Albumin/Globulin Ratio 1.7 (0.9-2) 05/15/24 03:09 Lipase 6631 U/L (11-82) H 05/15/24 03:09 Urine Color Yellow 05/15/24 03:50 Urine Appearance Cloudy (Clear) A 05/15/24 03:50 Urine pH 5.0 (4.5-7.5) 05/15/24 03:50 Ur Specific [place] 1.023 (1.000-1.030) 05/15/24 03:50 Urine Protein 2+ (Negative) H 05/15/24 03:50 Urine Glucose (UA) Negative (Negative) 05/15/24 03:50 Urine Ketones Trace (Negative) H 05/15/24 03:50 Urine Blood Negative (Negative) 05/15/24 03:50 Urine Nitrite Negative (Negative) 05/15/24 03:50 Urine Bilirubin Negative (Negative) 05/15/24 03:50 Urine Urobilinogen Negative (Negative) 05/15/24 03:50 Ur Leukocyte Esterase Trace (Negative) H 05/15/24 03:50 Urine WBC (Auto) 0-5 /hpf (0-5) 05/15/24 03:50 Urine RBC (Auto) 3-5 /hpf (0-2) H 05/15/24 03:50 U Hyaline Cast (Auto) 6-10 /lpf (0-2) H 05/15/24 03:50 U Epithel Cells (Auto) 0-2 /hpf (0-2) 05/15/24 03:50 Urine Bacteria (Auto) None Seen (None Seen) 05/15/24 03:50 Stl C. cayetanensis PCR Not Detected (NotDetected) 05/15/24 05:09 Stool Rotavirus A PCR Not Detected (NotDetected) 05/15/24 05:09 Stl Adenov F 40/41 PCR Not Detected (NotDetected) 05/15/24 05:09 Stool Astrovirus (PCR) Not Detected (NotDetected) 05/15/24 05:09 Stool Campylobacter PCR Not Detected (NotDetected) 05/15/24 05:09 Stl C. diff Tox B Gene Negative Cdiff Gene (Neg) 05/15/24 05:09 Stool Cryptosporidium PCR Not Detected (NotDetected) 05/15/24 05:09 Stl E.coli Shiga Tox PCR Not Detected (NotDetected) 05/15/24 05:09 Stl Enterotoxigenic E PCR Not Detected (NotDetected) 05/15/24 05:09 Stool EPEC (PCR) Not Detected (NotDetected) 05/15/24 05:09 Stool EAEC (PCR) Not Detected (NotDetected) 05/15/24 05:09 Stl E. histolytica PCR Not Detected (NotDetected) 05/15/24 05:09 Stool Giardia Lamblia PCR Not Detected (NotDetected) 05/15/24 05:09 Stool Salmonella PCR Not Detected (NotDetected) 05/15/24 05:09 Stool Sapovirus (PCR) Not Detected (NotDetected) 05/15/24 05:09 Stl P. shigelloides PCR Not Detected (NotDetected) 05/15/24 05:09 Stl Shigella/EIEC PCR Not Detected (NotDetected) 05/15/24 05:09 St Y.enterocolitica PCR Not Detected (NotDetected) 05/15/24 05:09 Stool Vibrio (PCR) Not Detected (NotDetected) 05/15/24 05:09 Stl Vibrio cholerae PCR Not Detected (NotDetected) 05/15/24 05:09 Stl Norovirus GI/GII PCR Not Detected (NotDetected) 05/15/24 05:09 Adenovirus (PCR) Not Detected (NotDetected) 05/15/24 03:50 B. pertussis DNA (PCR) Not Detected (NotDetected) 05/15/24 03:50 B.parapertussis DNA PCR Not Detected (NotDetected) 05/15/24 03:50 C. pneumoniae DNA (PCR) Not Detected (NotDetected) 05/15/24 03:50 Coronavirus OC43 (PCR) DETECTED (NotDetected) A 05/15/24 03:50 Coronavirus HKU1 (PCR) Not Detected (NotDetected) 05/15/24 03:50 Coronavirus 229E (PCR) Not Detected (NotDetected) 05/15/24 03:50 SARS-CoV-2 (PCR) Not Detected (NotDetected) 05/15/24 03:50 Coronavirus NL63 (PCR) Not Detected (NotDetected) 05/15/24 03:50 Human Metapneumovir PCR Not Detected (NotDetected) 05/15/24 03:50 Influenza Type A (PCR) Not Detected (NotDetected) 05/15/24 03:50 Influenza Type B (PCR) Not Detected (NotDetected) 05/15/24 03:50 M. pneumoniae (PCR) Not Detected (NotDetected) 05/15/24 03:50 Parainfluenza 1 (PCR) Not Detected (NotDetected) 05/15/24 03:50 Parainfluenza 2 (PCR) Not Detected (NotDetected) 05/15/24 03:50 Parainfluenza 3 (PCR) Not Detected (NotDetected) 05/15/24 03:50 Parainfluenza 4 (PCR) Not Detected (NotDetected) 05/15/24 03:50 RSV (PCR) Not Detected (NotDetected) 05/15/24 03:50 Entero/Rhino (PCR) Not Detected (NotDetected) 05/15/24 03:50 Impressions Abdomen/Pelvis CT 05/15/24 03:09 EXAM: CT abd pelvis IV con only CLINICAL HISTORY: mid abd pain v/d, 93 ML OPTIRAY 320 TECHNIQUE: Multiple contiguous axial images were obtained from the level of diaphragm to the pubis symphysis. This study was acquired after the IV administration of iodinated contrast material, given the patient's indications for the examination. If IV contrast material had not been administered, the likelihood of detecting abnormalities relevant to the patient's condition would have been substantially decreased. Coronal and sagittal reformatted images were generated and reviewed to improve anatomic localization and optimize lesion detection. CT scan was performed according to ALARA (as low as reasonably achievable). COMPARISON: None. FINDINGS: Minimal pericardial effusion is detected. ABDOMEN/PELVIS: Circumferential wall thickening is noted involving entire jejunum. Proximal jejunum appears dilated measuring 3.7 cm in diameter. Similar patchy wall thickening is also noted involving the ileum. However, ileal loops appear normal in caliber. Mild fat stranding and congestion is noted around is edematous small bowel loops. No signs of bowel perforation /pneumoperitoneum. Large bowel is normal in caliber. Mild free fluid is noted in the pelvis. Small fat containing bilateral inguinal hernias are noted, larger on left side. Small omental fat containing umbilical hernia is also seen. The liver is normal in size and attenuation. No focal liver lesions are seen. There is no intra or extrahepatic biliary ductal dilatation. Hepatic vasculature is patent. The gallbladder is unremarkable. The spleen is unremarkable. The pancreas is unremarkable. Both adrenal glands are unremarkable. The kidneys are normal in size and attenuation. There is no hydronephrosis. No perinephric fat stranding is seen. No renal calculi or renal masses are identified. The ureters are normal in caliber and no ureteral calculi are seen. The bladder is normal in contour. The aorta is normal in caliber. No aggressive appearing osseous lesions are identified. IMPRESSION: 1. Minimal pericardial effusion is detected. 2. Circumferential wall thickening is noted involving entire jejunum. Proximal jejunum appears dilated measuring 3.7 cm in diameter. Similar patchy wall thickening is also noted involving the ileum. However, ileal loops appear normal in caliber. Mild fat stranding and congestion is noted around is edematous small bowel loops. No signs of bowel perforation /pneumoperitoneum. Possibility of enteritis, likely infective with low grade small bowel obstruction needs consideration. Follow up is suggested. 3. Large bowel is normal in caliber. 4. Mild free fluid is noted in the pelvis. 5. Small fat containing bilateral inguinal hernias are noted, larger on left side. 6. Small omental fat containing umbilical hernia is also seen. Electronically signed by Roman Mcwilliams 05-15-2024 04:39 AM Code Status & VTE Plan VTE Prophylaxis Plan VTE Prophylaxis will be ordered: Yes
[2024-05-15] MEDS: D5W AND LACTATED RINGERS 1,000 ML IV SCH (09:07)
[2024-05-15] MEDS: PIPERACILLIN/TAZOBACTAM 4.5 GM/100 ML BAG IV STA (09:33)
--- NOTE | 2024-05-15 10:09 | Ultrasound Report ---
ABDOMINAL ULTRASOUND, RIGHT UPPER QUADRANT HISTORY: Acute right upper quadrant abdominal pain Pancreatitis, r/o gallstones. COMPARISON: CT of same day FINDINGS: Pancreas: The pancreas demonstrates a normal echotexture. Liver: Increased echogenicity of the liver. No hepatic mass or marginal nodularity. No ascites. Gallbladder: No gallbladder wall thickening. No gallstones. CBD: 5 mm. Right kidney: No hydronephrosis. IMPRESSION: 1. Unremarkable gallbladder. 2. No biliary ductal dilation. 3. Hepatic steatosis. ACT 112: Negative or not required by law. Electronically signed by: Reymundo Yu M.D. 05/15/2024 10:07 AM
[2024-05-15] MEDS ORDERED: HYDROmorphone INJ 0.5 MG/0.5 ML SYR IV PRN ×2 (10:20)
[2024-05-15] MEDS: SODIUM CHLORIDE 0.9% 1,000 ML IV SCH (10:34)
[2024-05-15] MEDS: PANTOprazole 40 MG/10 ML SYR IV SCH (10:35)
[2024-05-15] MEDS: HEPARIN SOD 5,000 UNIT/0.5 ML VIAL SQ SCH (10:35)
--- NOTE | 2024-05-15 12:53 | Gastrointestinal Consultation ---
Date of Consultation May 15, 2024 Assessment & Plan (1) Nausea, vomiting, and diarrhea: (2) Abdominal pain: Plan Patient had sudden onset of symptoms this morning and these currently seem to be improved. lipase significantly elevated but CT shown normal pancreas. Covid Pos itive. GI asked to see for possible ERCP but LFTs are normal and there is no ductal dilation on CBD and as such, no ERCP needed at this time. I had reached out to radiology to review CT to comment on mesenteric veins, but have yet to hear back on this. Will discuss further with Dr. Mccray, further recommendations to follow. Supervising Physician Co-Signing Physician Notes Patient examined in the emergency room. He appeared relatively comfortable. Family at the bedside. States he is about 50% improved since admission. Abdomen protuberant with adiposity though relatively benign. Bowel sounds present. CTs suggest enteritis. This could be viral, patient is COVID- positive.. Angioedema has been associated with COVID is on the differential. Patient does not take lisinopril but he does take indomethacin which is implicated in angioedema. Lipase is 6000 somewhat atypical for angioedema. However pancreas does not appear to be inflamed on CT. I did review his CT with the radiologist exclude mesenteric vein thrombosis which could present this way but the mesenteric vessels appear fine. At this point recommend continue observing clinical course. I do not believe this is gallstone pancreatitis. Liver enzymes have not changed. Ducts are not dilated. No definite gallstones. Repeat CBC CMP and lipase tomorrow. We will check triglycerides also as a cause for possible pancreatitis. I do not believe alcohol sufficient by history to cause pancreatitis. History of Present Illness Reason for Consultation: concern for ERCP Requesting Physician: Magdy Fuentes MD Attending Physician: Donte Douglas MD History of Present Illness Patient is a 39 year old male with past medical history significant for elevated blood pressure, allergic rhinitis, morbid obesity, gout presented to the ED this morning because of nausea, vomiting, and abdominal pain that started suddenly when he woke up in the middle of the night to urinate. He tells me that pain come on all of a sudden. rated 5/10. felt like an ache. He had one loose stool but not melena or brbpr. Given this, he decided to proceed to the ED. On evaluation his lipase came back as 6631, but CT did not show signs of pancreatitis, but circumferential wall thickening is noted involving entire jejunum- ?enteritis. lactate elevated 2.4. Stools negative. covid positive. LFTs were wnl, but GI asked to see in case needed ERCP. US shown no cbd dilation. no etoh use. never had pancreatitis before. he tells me that currently he is feeling somewhat improved. Allergies Allergy/AdvReac Type Severity Reaction Status Date / Time No Known Allergies Allergy Unverified 10/29/17 11:12 Home Medications Medication Instructions Recorded Confirmed Type [place] 3 2 capsules PO UD ##0 08/01/12 05/15/24 History allopurinol 300 mg tablet 300 mg PO DAILY #0 tabs 10/29/17 05/15/24 History ascorbic acid (vitamin C) 500 mg PO UD ##0 10/29/17 05/15/24 History Sudafed 1 tab PO DIRECTED PRN Cold 05/15/24 05/15/24 History Symptoms indomethacin 50 mg capsule 50 mg PO TID PRN pain/gout flare 05/15/24 05/15/24 History Patient History Social History Smoking Status: Never smoker Preferred Language: Khmer Feels Safe at Home: Yes Review of Systems Review of Systems: All systems reviewed & are unremarkable except as noted in HPI & below Physical Exam Constitutional: WD/WN, vitals as above Respiratory: normal respiratory effort, lungs clear to auscultation Cardiovascular: Rate/Rhythm: regular rate and regular rhythm Gastrointestinal (Abdomen): normal bowel sounds, soft, nontender, no hepatosplenomegaly Psychiatric: Orientation: alert and oriented x 3 Results & Data Vital Signs (Past 12 Hours) Vital Signs Pulse Pulse Resp BP BP Pulse Ox O2 Del Method 05/15/24 11:05 89 18 117/80 95 Room Air 05/15/24 10:00 89 18 133/76 97 Room Air 05/15/24 08:10 86 05/15/24 08:00 87 20 107/71 97 Room Air 05/15/24 06:56 86 18 103/71 96 Room Air 05/15/24 06:00 93 H 20 114/71 98 Room Air 05/15/24 04:00 100 H 20 106/62 99 Room Air 05/15/24 03:58 85 05/15/24 03:50 85 20 105/76 98 Room Air 05/15/24 03:50 84 20 97 Room Air 05/15/24 03:02 69 18 94/62 L 97 Room Air Coding Level of Care Code 80963 OFFICE CONSULT LVL Diagnoses Nausea, vomiting, and diarrhea R11.2; R19.7 Abdominal pain R10.9
[2024-05-15] MEDS: PIPERACILLIN/TAZOBACTAM 4.5 GM/100 ML BAG IV SCH (13:32)
--- NOTE | 2024-05-15 17:11 | Hospitalist Progress Note ---
Date of Service May 15, 2024 Assessment & Plan (1) Sepsis: Plan: -as noted by tachycardia, tachypnea, leukocytosis with abdominal source -enteritis noted as well as pancreatitis, 2 possible sources -benign abdominal exam, elevated procalcitonin suggests bacterial etiology -elevated lactic acid as well Plan: -f/u blood cultures, ordered -start zosyn for empiric coverage -monitor exam and bowel movements -trend lactic acid -give additional NS for goal orriented resuscitation, maintenance fluids after -GI and general surgery consultations, appreciate recs (2) Acute pancreatitis: Plan: -as noticed by elevated lipase of over 6000 -no clear source on imaging Plan: -surgical consult, GI consult, appreciate recs -clear liquids for now, advance diet as toleratedf (3) Coronavirus infection: Plan: -likely source of patients cold like symptoms past week or so Plan: -supportive care (4) Nausea, vomiting, and diarrhea: Plan: -see above Plan: -zofran for nausea/vomiting (5) Enteritis: Plan: -noted on CT imaging, seems to be related to stool burden -likely source of sepsis Plan: -continue zosyn -monitor BM -follow up culture results (6) Ileus: Plan: -has not had BM in days -very dehydrated likely from cold like illness -c/b enteritis Plan: -surgery consult, appreciate recs (7) YAN (acute kidney injury): Plan: -in setting of enteritis, pancreatitis, ileus -cold like symptoms as well -likely prerenal dehydration Plan: -fluid resuscitation as tolerated Plan Feeding/fluids: clear liquids Analgesia: dilaudid Sedation: none Thromboprophylaxis: heparin Head up position: na Ulcer prophylaxis: na Glycemic control: na Spontaneous breathing trial: na Bowel care: partial ileus Indwelling catheter removal: na Deescalation of antibiotics: zosyn Admission and Anticipated Discharge Date Admission Date: May 15, 2024 Subjective [id number] male presenting with nausea and vomiting. Had been feeling sick for the past few days, then noticed the nausea and vomiting. Denied abdominal pain. In the ED noticed to have an elevated lipase and enteritis on CT scan admit, admitted to medicine for further workup. Patient seen and examined at bedside mom present and case was discussed with both with permission of the patient. Patient is doing okay today nausea and vo miting is slightly improved. Denies any abdominal pain. Has not had a bowel movement in 2 days. But is passing gas. Diarrhea before that Review of Systems Review of Systems: CONSTITUTIONAL: fatigue EYES: Patient denies any visual symptoms. EARS, NOSE, AND THROAT: No difficulties with hearing. No symptoms of rhinitis or sore throat. CARDIOVASCULAR: Patient denies chest pains, palpitations, orthopnea and paroxysmal nocturnal dyspnea. RESPIRATORY: No dyspnea on exertion, no wheezing or cough. GI: no BM in 2 days, nausea/vomiting : No urinary hesitancy or dribbling. No nocturia or urinary frequency. No abnormal urethral discharge. MUSCULOSKELETAL: No myalgias or arthralgias. NEUROLOGIC: No chronic headaches, no seizures. Patient denies numbness, tingling or weakness. PSYCHIATRIC: Patient denies problems with mood disturbance. No problems with anxiety. ENDOCRINE: No excessive urination or excessive thirst. DERMATOLOGIC: Patient denies any rashes or skin changes. Physical Exam Physical Exam: Gen: A&O 3 NAD HEENT: NCAT, EOMI, not icteric. External ears normal. No rhinorrhea. Moist mucous membranes. Neck: Supple, full range of motion, no observable masses, No meningeal sign. Lungs: No Respiratory distress. CV: RRR, no edema. Abdomen: Soft, nondistended, No rebound tenderness. MSK: No joint swelling, no redness. Skin: No rashes, petechiae, lesions. Normal color per patient. Neuro: Normal Gait, Grossly intact. Psych: Appropriate for situation. Results & Data Results & Data Vital Signs (Past 12 Hours) Vital Signs Temp Pulse Pulse Resp BP Pulse Ox O2 Del Method 05/15/24 17:00 95 H 25 H 157/97 H 100 Room Air 05/15/24 15:23 36.7 C 90 20 151/90 H 98 Room Air 05/15/24 14:01 88 16 143/95 H 97 Room Air 05/15/24 11:05 89 18 117/80 95 Room Air 05/15/24 10:00 89 18 133/76 97 Room Air 05/15/24 08:10 86 05/15/24 08:00 87 20 107/71 97 Room Air 05/15/24 06:56 86 18 103/71 96 Room Air 05/15/24 06:00 93 H 20 114/71 98 Room Air Laboratory Results Laboratory Results WBC 11.87 K/ul (4.8-10.8) H 05/15/24 03:09 RBC 6.10 M/uL (4.70-6.10) 05/15/24 03:09 Hgb 18.7 g/dl (14.0-18.0) H 05/15/24 03:09 POC Hgb 18.7 g/dl (14.0-18.0) H 05/15/24 03:25 Hct 54.9 % (42.0-52.0) H 05/15/24 03:09 POC Hct 55 % (42-52) H 05/15/24 03:25 MCV 90.0 fL (80.0-100.0) 05/15/24 03:09 MCH 30.7 pg (25.0-34.0) 05/15/24 03:09 MCHC 34.1 g/dL (32.0-36.0) 05/15/24 03:09 RDW Std Deviation 38.8 fL (36.4-46.3) 05/15/24 03:09 RDW Coeff of [place] 11.9 % (11.5-14.5) 05/15/24 03:09 Plt Count 308 K/uL (130-400) 05/15/24 03:09 MPV 9.8 fL (9.4-12.4) 05/15/24 03:09 Immature Gran % (Auto) 0.6 % 05/15/24 03:09 Neut % (Auto) 62.4 % 05/15/24 03:09 Lymph % (Auto) 29.0 % 05/15/24 03:09 [place] % (Auto) 4.4 % 05/15/24 03:09 Eos % (Auto) 2.9 % 05/15/24 03:09 Baso % (Auto) 0.7 % 05/15/24 03:09 Neut # (Auto) 7.42 K/uL (1.40-6.50) H 05/15/24 03:09 Lymph # (Auto) 3.44 K/uL (1.20-3.40) H 05/15/24 03:09 Mitchell # (Auto) 0.52 K/uL (0.11-0.59) 05/15/24 03:09 Eos # (Auto) 0.34 K/uL (0.00-0.50) 05/15/24 03:09 Baso # (Auto) 0.08 K/uL (0.00-0.20) 05/15/24 03:09 Immature Gran # (Auto) 0.07 K/uL (0.01-0.20) 05/15/24 03:09 POC Sodium 140 mmol/L (135-144) 05/15/24 03:25 Sodium 138 mmol/L (136-145) 05/15/24 03:09 POC Potassium 3.7 mmol/L (3.3-5.0) 05/15/24 03:25 Potassium 3.8 mmol/L (3.5-5.1) 05/15/24 03:09 POC Chloride 100 mmol/L (101-112) L 05/15/24 03:25 Chloride 100 mmol/L (98-107) 05/15/24 03:09 Carbon Dioxide 30 mmol/L (21-32) 05/15/24 03:09 POC Total CO2 27 mmol/L (24-31) 05/15/24 03:25 Anion Gap 8 (3-11) 05/15/24 03:09 POC Anion Gap 17.0 mmol/L (16-25) 05/15/24 03:25 POC BUN 21 mg/dl (7-18) H 05/15/24 03:25 BUN 20 mg/dl (6-23) 05/15/24 03:09 Creatinine 1.50 mg/dl (0.6-1.4) H 05/15/24 03:09 POC Creatinine 1.6 mg/dl (0.6-1.3) H 05/15/24 03:25 Est Cr Clr Drug Dosing 83.7 ml/min 05/15/24 03:09 eGFR 60.73 05/15/24 03:09 BUN/Creatinine Ratio 13.3 (10-20) 05/15/24 03:09 Glucose 137 mg/dl (70-99(Fasting)) H 05/15/24 03:09 POC Glucose (other) 133 mg/dl (70-99) H 05/15/24 03:25 Lactate 2.4 mmol/L (0.4-2.0) H* 05/15/24 11:19 Calcium 10.0 mg/dl (8.6-10.3) 05/15/24 03:09 POC Ioniz Calcium Renae 1.21 mmol/l (1.12-1.32) 05/15/24 03:25 Magnesium 2.3 mg/dl (1.7-2.4) 05/15/24 03:09 Total Bilirubin 0.7 mg/dl (0.2-1.0) 05/15/24 03:09 AST 21 U/L (13-39) 05/15/24 03:09 ALT 24 U/L (7-52) 05/15/24 03:09 Alkaline Phosphatase 65 U/L (34-104) 05/15/24 03:09 Total Protein 7.9 gm/dl (6.0-8.3) 05/15/24 03:09 Albumin 5.0 gm/dl (3.4-5.0) 05/15/24 03:09 Globulin 2.9 gm/dl (2.5-4.0) 05/15/24 03:09 Albumin/Globulin Ratio 1.7 (0.9-2) 05/15/24 03:09 Lipase 6631 U/L (11-82) H 05/15/24 03:09 Procalcitonin 0.62 ng/ml (0-0.5) H 05/15/24 09:05 Urine Color Yellow 05/15/24 03:50 Urine Appearance Cloudy (Clear) A 05/15/24 03:50 Urine pH 5.0 (4.5-7.5) 05/15/24 03:50 Ur Specific [place] 1.023 (1.000-1.030) 05/15/24 03:50 Urine Protein 2+ (Negative) H 05/15/24 03:50 Urine Glucose (UA) Negative (Negative) 05/15/24 03:50 Urine Ketones Trace (Negative) H 05/15/24 03:50 Urine Blood Negative (Negative) 05/15/24 03:50 Urine Nitrite Negative (Negative) 05/15/24 03:50 Urine Bilirubin Negative (Negative) 05/15/24 03:50 Urine Urobilinogen Negative (Negative) 05/15/24 03:50 Ur Leukocyte Esterase Trace (Negative) H 05/15/24 03:50 Urine WBC (Auto) 0-5 /hpf (0-5) 05/15/24 03:50 Urine RBC (Auto) 3-5 /hpf (0-2) H 05/15/24 03:50 U Hyaline Cast (Auto) 6-10 /lpf (0-2) H 05/15/24 03:50 U Epithel Cells (Auto) 0-2 /hpf (0-2) 05/15/24 03:50 Urine Bacteria (Auto) None Seen (None Seen) 05/15/24 03:50 Stl C. cayetanensis PCR Not Detected (NotDetected) 05/15/24 05:09 Stool Rotavirus A PCR Not Detected (NotDetected) 05/15/24 05:09 Stl Adenov F 40/41 PCR Not Detected (NotDetected) 05/15/24 05:09 Stool Astrovirus (PCR) Not Detected (NotDetected) 05/15/24 05:09 Stool Campylobacter PCR Not Detected (NotDetected) 05/15/24 05:09 Stl C. diff Tox B Gene Negative Cdiff Gene (Neg) 05/15/24 05:09 Stool Cryptosporidium PCR Not Detected (NotDetected) 05/15/24 05:09 Stl E.coli Shiga Tox PCR Not Detected (NotDetected) 05/15/24 05:09 Stl Enterotoxigenic E PCR Not Detected (NotDetected) 05/15/24 05:09 Stool EPEC (PCR) Not Detected (NotDetected) 05/15/24 05:09 Stool EAEC (PCR) Not Detected (NotDetected) 05/15/24 05:09 Stl E. histolytica PCR Not Detected (NotDetected) 05/15/24 05:09 Stool Giardia Lamblia PCR Not Detected (NotDetected) 05/15/24 05:09 Stool Salmonella PCR Not Detected (NotDetected) 05/15/24 05:09 Stool Sapovirus (PCR) Not Detected (NotDetected) 05/15/24 05:09 Stl P. shigelloides PCR Not Detected (NotDetected) 05/15/24 05:09 Stl Shigella/EIEC PCR Not Detected (NotDetected) 05/15/24 05:09 St Y.enterocolitica PCR Not Detected (NotDetected) 05/15/24 05:09 Stool Vibrio (PCR) Not Detected (NotDetected) 05/15/24 05:09 Stl Vibrio cholerae PCR Not Detected (NotDetected) 05/15/24 05:09 Stl Norovirus GI/GII PCR Not Detected (NotDetected) 05/15/24 05:09 Adenovirus (PCR) Not Detected (NotDetected) 05/15/24 03:50 B. pertussis DNA (PCR) Not Detected (NotDetected) 05/15/24 03:50 B.parapertussis DNA PCR Not Detected (NotDetected) 05/15/24 03:50 C. pneumoniae DNA (PCR) Not Detected (NotDetected) 05/15/24 03:50 Coronavirus OC43 (PCR) DETECTED (NotDetected) A 05/15/24 03:50 Coronavirus HKU1 (PCR) Not Detected (NotDetected) 05/15/24 03:50 Coronavirus 229E (PCR) Not Detected (NotDetected) 05/15/24 03:50 SARS-CoV-2 (PCR) Not Detected (NotDetected) 05/15/24 03:50 Coronavirus NL63 (PCR) Not Detected (NotDetected) 05/15/24 03:50 Human Metapneumovir PCR Not Detected (NotDetected) 05/15/24 03:50 Influenza Type A (PCR) Not Detected (NotDetected) 05/15/24 03:50 Influenza Type B (PCR) Not Detected (NotDetected) 05/15/24 03:50 M. pneumoniae (PCR) Not Detected (NotDetected) 05/15/24 03:50 Parainfluenza 1 (PCR) Not Detected (NotDetected) 05/15/24 03:50 Parainfluenza 2 (PCR) Not Detected (NotDetected) 05/15/24 03:50 Parainfluenza 3 (PCR) Not Detected (NotDetected) 05/15/24 03:50 Parainfluenza 4 (PCR) Not Detected (NotDetected) 05/15/24 03:50 RSV (PCR) Not Detected (NotDetected) 05/15/24 03:50 Entero/Rhino (PCR) Not Detected (NotDetected) 05/15/24 03:50 Impressions Abdomen/Pelvis CT 05/15/24 03:09 EXAM: CT abd pelvis IV con only CLINICAL HISTORY: mid abd pain v/d, 93 ML OPTIRAY 320 TECHNIQUE: Multiple contiguous axial images were obtained from the level of diaphragm to the pubis symphysis. This study was acquired after the IV administration of iodinated contrast material, given the patient's indications for the examination. If IV contrast material had not been administered, the likelihood of detecting abnormalities relevant to the patient's condition would have been substantially decreased. Coronal and sagittal reformatted images were generated and reviewed to improve anatomic localization and optimize lesion detection. CT scan was performed according to ALARA (as low as reasonably achievable). COMPARISON: None. FINDINGS: Minimal pericardial effusion is detected. ABDOMEN/PELVIS: Circumferential wall thickening is noted involving entire jejunum. Proximal jejunum appears dilated measuring 3.7 cm in diameter. Similar patchy wall thickening is also noted involving the ileum. However, ileal loops appear normal in caliber. Mild fat stranding and congestion is noted around is edematous small bowel loops. No signs of bowel perforation /pneumoperitoneum. Large bowel is normal in caliber. Mild free fluid is noted in the pelvis. Small fat containing bilateral inguinal hernias are noted, larger on left side. Small omental fat containing umbilical hernia is also seen. The liver is normal in size and attenuation. No focal liver lesions are seen. There is no intra or extrahepatic biliary ductal dilatation. Hepatic vasculature is patent. The gallbladder is unremarkable. The spleen is unremarkable. The pancreas is unremarkable. Both adrenal glands are unremarkable. The kidneys are normal in size and attenuation. There is no hydronephrosis. No perinephric fat stranding is seen. No renal calculi or renal masses are identified. The ureters are normal in caliber and no ureteral calculi are seen. The bladder is normal in contour. The aorta is normal in caliber. No aggressive appearing osseous lesions are identified. IMPRESSION: 1. Minimal pericardial effusion is detected. 2. Circumferential wall thickening is noted involving entire jejunum. Proximal jejunum appears dilated measuring 3.7 cm in diameter. Similar patchy wall thickening is also noted involving the ileum. However, ileal loops appear normal in caliber. Mild fat stranding and congestion is noted around is edematous small bowel loops. No signs of bowel perforation /pneumoperitoneum. Possibility of enteritis, likely infective with low grade small bowel obstruction needs consideration. Follow up is suggested. 3. Large bowel is normal in caliber. 4. Mild free fluid is noted in the pelvis. 5. Small fat containing bilateral inguinal hernias are noted, larger on left side. 6. Small omental fat containing umbilical hernia is also seen. Electronically signed by Roman Mcwilliams 05-15-2024 04:39 AM Abdomen Ultrasound 05/15/24 08:37 ABDOMINAL ULTRASOUND, RIGHT UPPER QUADRANT HISTORY: Acute right upper quadrant abdominal pain Pancreatitis, r/o gallstones. COMPARISON: CT of same day FINDINGS: Pancreas: The pancreas demonstrates a normal echotexture. Liver: Increased echogenicity of the liver. No hepatic mass or marginal nodularity. No ascites. Gallbladder: No gallbladder wall thickening. No gallstones. CBD: 5 mm. Right kidney: No hydronephrosis. IMPRESSION: 1. Unremarkable gallbladder. 2. No biliary ductal dilation. 3. Hepatic steatosis. ACT 112: Negative or not required by law. Electronically signed by: Reymundo Yu M.D. 05/15/2024 10:07 AM (1) Sepsis Sepsis type: sepsis due to unspecified organism Sepsis acute organ dysfunction status: with acute organ dysfunction Severe sepsis acute organ dysfunction type: acute renal failure Acute renal failure type: unspecified Severe sepsis shock status: without septic shock Qualified Code(s): A41.9 - Sepsis, unspecified organism; R65.20 - Severe sepsis without septic shock; N17.9 - Acute kidney failure, unspecified (2) Acute pancreatitis Pancreatitis type: idiopathic Acute pancreatitis complication: unspecified Qualified Code(s): K85.00 - Idiopathic acute pancreatitis without necrosis or infection
[2024-05-16 07:17] LABS: Basophils # (auto) 0.02 K/uL (0.00-0.20); Basophils % (auto) 0.2 %; Eosinophils # (auto) 0.08 K/uL (0.00-0.50); Eosinophils % (auto) 0.8 %; Hematocrit (blood only) 41.5 % (42.0-52.0); Hemoglobin 14.1 g/dl (14.0-18.0); Immature Granulocytes # (auto) 0.03 K/uL (0.01-0.20); Immature Granulocytes % (auto) 0.3 %; Lymphocytes % (auto) 12.4 %; Mean Corpuscular Hemoglobin 30.5 pg (25.0-34.0); Mean Corpuscular Volume 89.6 fL (80.0-100.0); Mean Platelet Volume 9.9 fL (9.4-12.4); Monocytes # (auto) 0.73 K/uL (0.11-0.59); Monocytes % (auto) 7.5 %; Neutrophils # (auto) 7.63 K/uL (1.40-6.50); Neutrophils % (auto) 78.8 %; Platelet Count 165 K/uL (130-400); RDW Coefficient of Variation 12.5 % (11.5-14.5); RDW Standard Deviation 40.8 fL (36.4-46.3); Red Blood Count 4.63 M/uL (4.70-6.10); White Blood Count 9.69 K/ul (4.8-10.8)
[2024-05-16 07:44] LABS: Albumin Globulin Ratio 1.9 (0.9-2); BUN Creatinine Ratio 12.7 (10-20); Bilirubin,Total 0.7 mg/dl (0.2-1.0); Calcium 8.7 mg/dl (8.6-10.3); Creatinine Clr Calc Pharmacy 161.2 ml/min; Globulin 2.1 gm/dl (2.5-4.0); Magnesium 1.7 mg/dl (1.7-2.4); Potassium 3.8 mmol/L (3.5-5.1); Total Protein 6.1 gm/dl (6.0-8.3)
--- NOTE | 2024-05-16 09:05 | Surgery Progress Note ---
Date of Service May 16, 2024 Assessment & Plan (1) Acute pancreatitis: Plan: He is tolerating some clear liquids and is continuing to have some diarrhea His lipase is normal and he has no evidence of gallstones on ultrasound Would advance his diet as tolerated likely stable for discharge later today versus tomorrow No need for surgical follow-up as he has no gallstones on ultrasound Surgery will sign off at this time, please call with any questions or concerns (2) Coronavirus infection: Admission and Anticipated Discharge Date Admission Date: May 15, 2024 Subjective Patient seen and examined. Tolerating clear liquids. He is having some bowel movements. Afebrile. Review of Systems Constitutional: no fever and no chills Eyes: no blind spots and no worsening vision Ear, Nose, Mouth, Throat: no ear pain and no hearing loss Respiratory: no cough and no dyspnea Cardiovascular: no chest pain and no dyspnea on exertion Gastrointestinal: + diarrhea/loose stools; no abdominal pa in, no nausea, no vomiting, no constipation, no blood in stools and no melena Genitourinary: no dysuria or no urinary incontinence Musculoskeletal: no back pain and no neck pain Integumentary: no acne and no changing lesions Neurologic: no gait abnormality and no headache(s) Psychiatric: no behavioral changes and no depression Hematologic / Lymphatic: no easy bleeding and no easy bruising Physical Exam Constitutional: WD/WN, vitals as above Eyes: PERRL, conjunctivae normal, anicteric sclerae ENMT: external ear and nose normal, oropharynx normal Neck: trachea midline, no thyromegaly Respiratory: normal respiratory effort, lungs clear to auscultation Cardiovascular: RRR, no murmur, no edema Gastrointestinal (Abdomen): Inspection/Auscultation: abdomen normal to inspection; abdomen not distended Percussion/Palpation: + abdomen tender (Epigastrium) and abdomen soft; no guarding and no hernia Musculoskeletal: no cyanosis or clubbing, extremities motor strength 5/5 Skin: no rashes, warm and dry Neurologic: PERRL, EOMI, accommodation nl, no face palsy, no dysarthria Psychiatric: A+Ox3, euthymic affect Results & Data Vital Signs (Past 12 Hours) Vital Signs Temp Pulse Resp BP Pulse Ox O2 Del Method 05/16/24 07:47 37.1 C 90 18 147/85 H 97 Room Air 05/15/24 21:25 36.7 C 105 H 18 158/89 H 98 Room Air PG Care Time/CCT Total # of Minutes Spent Total Time Spent with Patient: Total time spent is greater than 50% in coordination of care (as documented) at patient's floor/unit and/or counseling patient: Coding Level of Care Code 70560 SUB INP/OBS CARE 05/23MIN Diagnoses Idiopathic acute pancreatitis, unspecified complication status K85.00 Acute pancreatitis complication: unspecified Pancreatitis type: idiopathic Coronavirus infection B34.2 (1) Acute pancreatitis Acute pancreatitis complication: unspecified Pancreatitis type: idiopathic Qualified Code(s): K85.00 - Idiopathic acute pancreatitis without necrosis or infection
[2024-05-16] MEDS: allopurinoL 300 MG TAB PO SCH (09:08)
--- NOTE | 2024-05-16 10:56 | Discharge Summary ---
Discharge Summary Date of Service May 16, 2024 Principal Dx & Hospital Course #1 = Principal Diagnosis (1) Sepsis: -as noted by tachycardia, tachypnea, leukocytosis with abdominal source -enteritis noted as well as pancreatitis, 2 possible sources -benign abdominal exam, elevated procalcitonin suggests bacterial etiology -per surgery and clinical stability, patient stable for discharge home Plan: -f/u blood cultures, ordered -switch to PO abx (2) Acute pancreatitis: -as noticed by elevated lipase of over 6000 -no clear source on imaging Plan: -surgical consult, GI consult, appreciate recs -tolerating PO at this time (3) Coronavirus infection: -likely source of patients cold like symptoms past week or so Plan: -supportive care (4) Nausea, vomiting, and diarrhea: -see above Plan: -zofran for nausea/vomiting (5) Enteritis: -noted on CT imaging, seems to be related to stool burden -likely source of sepsis Plan: -switch to PO abx (6) Ileus: -has not had BM in days -very dehydrated likely from cold like illness -c/b enteritis Plan: -surgery consult, appreciate recs (7) YAN (acute kidney injury): -resolved Notes For Next Care Provider 39-year-old male who presented with intractable nausea and vomiting at home. For past few days has had cold-like symptoms. No bowel movement since Saturday. In ED CT noted to have enteritis With concern for a bowel obstruction. Upon admission to medicine General Surgery was consulted in [facility] of small bowel obstruction and unclear etiology of pancreatitis. GI was consulted in setting of pancreatitis. Further imaging was unrevealing for cause of pancreatitis. Patient rapidly improved clinically with the addition of fluids and antibiotics. General surgery felt patient medically stable for discharge. Given significant clinical improvement patient is medically ready for discharge with antibiotics. Enteritis likely secondary to dehydration and constipation. Pancreatitis possibly reactive to coronavirus. Medication Changes From Visit -course of augmentin Admission HPI Per Admitting Provider 39-year-old male with past medical history significant for elevated blood pressure situational, allergic rhinitis, morbid obesity, gout comes because of nausea vomiting diarrhea and abdominal pain. Still having diarrhea moved bowels in the ER. Abdominal pain is better. Several episodes of nausea vomiting as per patient. Patient lives with his parents. As per mother since Thanksgiving patient is having cold symptoms. Having lot of cough. He is taking [id number] cold medications, Sudafed. He also has gout. He takes allopurinol. He also takes indomethacin as needed and for last 1 week he was taking the indomethacin because of gout attack in his right wrist. Currently right wrist pain is resolved. Denies any fevers. No headache. Some runny nose. Vision is okay. No earaches. Ambulating okay. Micturating okay. Hemodynamics are okay. Past medical history. As mentioned above Past surgical history. Laparoscopic appendectomy. Social history. No smoking. Alcohol rarely. No drug use. Family history. Father has gout, hypertension. Discharge Exam Gen: A&O 3 NAD HEENT: NCAT, EOMI, not icteric. External ears normal. No rhinorrhea. Moist mucous membranes. Neck: Supple, full range of motion, no observable masses, No meningeal sign. Lungs: No Respiratory distress. CV: RRR, no edema. Abdomen: Soft, nondistended, No rebound tenderness. MSK: No joint swelling, no redness. Skin: No rashes, petechiae, lesions. Normal color per patient. Neuro: Normal Gait, Grossly intact. Psych: Appropriate for situation. Updated Medication List Medication Instructions Recorded Confirmed Type [place] 3 2 capsules PO UD ##0 08/01/12 05/15/24 History allopurinol 300 mg tablet 300 mg PO DAILY #0 tabs 10/29/17 05/15/24 History ascorbic acid (vitamin C) 500 mg PO UD ##0 10/29/17 05/15/24 History amoxicillin 500 mg-potassium 1 tab PO BID 7 days #14 tabs 05/16/24 Rx clavulanate 125 mg tablet (Augmentin) Hospital Stay Data Consultations 05/15/24 04:42 ED Decision to Admit Stat 05/15/24 08:27 Consult General Surgery Stat 05/15/24 11:56 Consult Gastroenterology Routine Diagnostic Imagining Performed 05/15/24 03:09 CT Abd and Pelvis [CT abd pelvis IV con only] Stat 05/15/24 08:37 US abdomen limited Stat Pending Results Patient Have Any Pending Studies at Discharge: No Discharge Instructions Given to Patient (Per Discharging Provider) 1. Progress diet slowly, avoid hard/tough consistency foods for first few days 2. Finish course of antibiotics Total Time Total Time Spent Total Time Spent (In Minutes): I spent a total of 45 minutes coordinating, documenting, and providing care for this patient excluding time spent in the performance of separately billed services.
--- NOTE | 2024-05-16 12:19 | Communication Note ---
Date of Service: May 16, 2024 Progress Note: A&P Assessment and plan (1) Sepsis: Status: None (2) Acute pancreatitis: Status: Acute (3) Coronavirus infection: Status: Acute (4) Nausea, vomiting, and diarrhea: Status: Acute (5) Enteritis: Status: None (6) Ileus: Status: None (7) YAN (acute kidney injury): Status: None Time Spent With Patient Time: Total time spent is greater than 50% in coordination of care (as documented) at patient's floor/unit and/or counseling patient: Time with patient: less than 15 minutes
--- NOTE | 2024-05-16 12:21 | Gastroenterology Progress Note ---
Date of Service May 16, 2024 Assessment & Plan (1) Enteritis: Plan: Patient had small bowel enteritis. This typically comes from viruses or drugs especially lisinopril however indomethacin is known to cause this and the patient had been taking this frequently prior to admission because of a gout flare . Typically with intestinal angioedema there is not an elevated lipase. Lipase rapidly decreased from [address] did not show pancreatitis. Trig lycerides were normal. There was no evidence of common duct stones his liver tests were normal alcohol was not an issue. Potentially all COVID related. COVID also can be associated with intestinal angioedema. Has been associated with pancreatitis Patient does not require further GI workup unless recurrent symptoms (2) Coronavirus infection: (3) Acute pancreatitis: Admission and Anticipated Discharge Date Admission Date: May 15, 2024 Subjective Patient was discharged prior to his being seen. Normalization of his lipase. Improvement of his symptoms Results & Data Results & Data Vital Signs (Past 12 Hours) Vital Signs Temp Pulse Resp BP Pulse Ox O2 Del Method 05/16/24 07:47 37.1 C 90 18 147/85 H 97 Room Air 05/16/24 07:45 Room Air PG Care Time/CCT Total # of Minutes Spent Total Time Spent with Patient: Total time spent is greater than 50% in coordination of care (as documented) at patient's floor/unit and/or counseling patient: Coding Level of Care Code None Diagnoses Enteritis K52.9 Coronavirus infection B34.2 Idiopathic acute pancreatitis, unspecified complication status K85.00 Acute pancreatitis complication: unspecified Pancreatitis type: idiopathic (3) Acute pancreatitis Acute pancreatitis complication: unspecified Pancreatitis type: idiopathic Qualified Code(s): K85.00 - Idiopathic acute pancreatitis without necrosis or infection
== END 2024-05-16 12:06 | disposition home or self-care (01) | DRG 871 ==
LOC: ED 03:00 → EDINP 06:54 → INTOOBSV 06:54 → SUATTDRO 06:54 → 3W 10:20